=== PATIENT | female | born 1935 | race Caucasian/White ===

== ENCOUNTER 2016-11-02 18:42 | Inpatient (IN) ==
[2016-11-02] MEDS ORDERED: 0.9 % Sodium Chloride 1,000 ML IVC ONE (19:14)
--- NOTE | 2016-11-02 19:31 | Emergency Department Note ---
Disposition Clinical Impression: ARNOLD (acute kidney injury) UTI (urinary tract infection) Qualifiers: Urinary tract infection type: site unspecified Hematuria presence: without hematuria Qualified Code(s): N39.0 - Urinary tract infection, site not specified Disposition: Admitted As Inpatient Condition: Fair Time of Disposition: 21:27 Female Urogenital HPI - General Chief complaint: ED Urogenital-Female Stated complaint: unable to Urinate, Dizzy Time Seen by Provider: 11/02/16 18:50 Source: patient, family Mode of arrival: ambulatory Limitations: no limitations Nursing Notes Reviewed: Yes Vital Signs Reviewed: Yes - History of Present Illness HPI Narrative: 81-year-old female with a history of hypertension, diabetes presents for evaluation of urinary symptoms. Patient states she has had difficulty urinating that started this morning around 7:00. Patient states she has been drinking lots of water. Patient does have a history of urinary tract infection the past. Patient denies any hematuria. Just notes that she dribbles when she urinates. Patient denies any abdominal pain. No chest pain comes of breath. No nausea or vomiting. Patient denies any bowel diarrhea or constipation. Patient does state that she has been intermittent dizzy over the past year. Patient currently denies any dizziness. No focal neurologic deficits. Patient states she has a history of paresthesias in her lower extremities has been present for years. - Related Data Previous Rx's Medication Instructions Recorded Cyclobenzaprine [Flexeril] 10 mg PO TID #14 tablet 06/20/15 HYDROcodone/Acet 5/325 mg [[place] 1 tab PO Q6H #7 tab 06/20/15 5-325 mg] HYDROcodone/Acet 5/325 mg [[place] 1 tab PO Q6H #7 tab 07/23/15 5-325 mg] Ciprofloxacin HCl [Cipro] 500 mg PO BID #14 tablet 08/30/15 Allergies Allergy/AdvReac Type Severity Reaction Status Date / Time Sulfa (Sulfonamide AdvReac See Verified 06/19/15 22:24 Antibiotics) Comments All systems ED: reviewed and negative except as stated. Constitutional: Reports: as per HPI. Denies: fever Eyes: Reports: as per HPI ENT ED: Reports: as per HPI Cardiovascular: Reports: as per HPI. Denies: chest pain, palpitations Respiratory: Reports: as per HPI Gastrointestinal: Reports: as per HPI. Denies: abdominal pain, nausea, vomiting Genitourinary: Reports: as per HPI Integumentary: Reports: as per HPI Neurological: Reports: as per HPI. Denies: weakness Psychiatric: Reports: as per HPI Endocrine: Reports: as per HPI Hematological/Lymphatic: Reports: as per HPI Allergic/Immunologic: Reports: as per HPI Past Medical History - Past Medical History Medical history: Reports: diabetes, hyperlipidemia, hypertension Psychiatric history: Reports: anxiety, depression - Social History Smoking Status: Never smoker Smokeless Tobacco Status: No Alcohol use: Reports: none Drug use: Reports: none Physical Exam - General Limitations: no limitations General appearance: alert, in no apparent distress - Head Head exam: atraumatic, normal inspection - Eye Eye exam: Present: normal appearance, EOMI - ENT ENT exam: normal exam, mucous membranes moist - Neck Neck exam: Present: normal inspection - Chest Chest inspection: Present: normal inspection, symmetric chest wall rise - Respiratory Respiratory exam: Present: normal lung sounds bilaterally. Absent: respiratory distress - Cardiovascular Cardiovascular exam: Present: regular rate, normal rhythm - Abdominal Exam Abdominal exam: Present: soft, Non-Tender - Extremities Exam Extremities exam: Present: normal inspection. Absent: pedal edema - Back Exam Back exam: Present: normal inspection - Neurological Exam Neurological exam: Present: alert, oriented X3, CN II-XII intact - Expanded Neurological Exam Patient oriented to: Present: person, place, time Speech: Present: fluid speech Cranial nerves: EOM function (II, III, IV, ): Normal, facial sensation (V): Normal, facial palsy (VII): Normal, tongue deviation (XII): Normal Motor strength - LUE: 5/5 Motor strength - RUE: 5/5 Motor strength - LLE: 5/5 Motor strength - RLE: 5/5 Sensory exam upper extremity: light touch: Normal Sensory exam lower extremity: light touch: Abnormal Left, Abnormal Right Coma Scale Eye Opening: Spontaneous Coma Scale Motor Response: Obeys Commands Coma Scale Verbal Response: Oriented Coma Scale Total: 15 - Skin Skin exam: Present: warm, dry, intact, normal color Course Course Narrative: Patient seen and examined. Patient will receive a UA as well as basic laboratory work. Patient also get a screening cardiac evaluation with EKG troponin chest x-ray given her dizziness and nonspecific symptoms. Patient will also receive a CT of the pelvis. Patient will have a urinary Perez placed. Bladder ultrasound does not show a distended bladder. - Reevaluation(s) Reevaluation #1: Patient seen and examined. Patient's resting comfortably. Repeat abdominal exam is unremarkable. Patient's updated on plan of care to date. Awaiting urinalysis. Time: 20:12 Vital Signs Temperature 99.0 F 11/02/16 18:44 Pulse Rate 66 11/02/16 18:44 Respiratory Rate 18 11/02/16 18:44 Blood Pressure 144/79 11/02/16 18:44 O2 Sat by Pulse Oximetry 95 11/02/16 18:44 Temperature 99.0 F 11/02/16 18:44 Pulse Rate 55 11/02/16 21:00 Respiratory Rate 16 11/02/16 21:00 Blood Pressure 137/57 11/02/16 21:00 O2 Sat by Pulse Oximetry 95 11/02/16 18:44 Oxygen Delivery Oxygen Delivery Room Air Urogenital-Female - [facility] Narrative Medical decision making narrative: 81-year-old female persons for evaluation of urinary symptoms. Symptoms began more acutely. Patient had basic laboratory evaluation which includes acute kidney injury. Likely prerenal. Patient's been given IV fluid hydration. Patient also had a urinalysis obtained which shows signs of infection. Patient started antibiotics. Patient's CT scan pelvis shows no acute abnormalities with incidental findings. Patient's chest x-ray shows no abnormality esteban patient's EKG also was unremarkable with a negative troponin. Patient had a screening cardiac evaluation giving her nonspecific symptoms with dizziness and history of diabetes possibly being anginal equivalent. Patient and patient's family agree with plan of care. - Lab Data Lab results reviewed: Yes I reviewed the patient's lab results. Result diagrams: 11/02/16 19:30 11/02/16 19:30 Lab Results 11/02/16 11/02/16 11/02/16 Range/Units 19:30 19:30 19:30 WBC 7.1 (4.3-11.1) K/mcL RBC 3.82 (3.82-4.97) M/mcL Hgb 11.8 (11.5-15.4) g/dL Hct 36.4 (35.3-44.9) % MCV 95.3 (83.0-100.0) fL MCH 30.9 (28.0-33.3) pg MCHC 32.4 (31.6-35.5) g/dL RDW 13.1 (11.5-14.5) % Plt Count 206 (140-400) K/mcL MPV 10.7 (9.4-12.4) fL Immature Gran % 0.3 (0-4) % Seg Neutrophils % 48.4 % Lymphocytes % 39.5 % Monocytes % 10.3 % Eosinophils % 1.1 % Basophils % 0.4 % Neutrophils # 3.4 (1.6-8.9) K/mcL Lymphocytes # 2.8 (0.6-4.6) K/mcL Monocytes # 0.7 (0.0-1.3) K/mcL Eosinophils # 0.1 (0.0-0.6) K/mcL Basophils # 0.0 (0.0-0.2) K/mcL Sodium 139 (136-145) mEq/L Potassium 4.4 (3.5-4.5) mEq/L Chloride 104 (98-109) mEq/L Carbon Dioxide 24 (19-29) mEq/L BUN 13 (7-20) mg/dL Creatinine 1.85 H (0.57-1.11) mg/dL Est GFR ( Amer) 32 L (> 60) Est GFR (Non-Af Amer) 26 L (> 60) BUN/Creatinine Ratio 7 (6-26) Glucose 108 H (70-99) mg/dL Calculated Osmolality 289 (280-300) Lactic Acid 2.0 (0.5-2.2) mmol/L Calcium 9.3 (8.6-10.8) mg/dL Total Bilirubin 0.7 (0.2-1.2) mg/dL Direct Bilirubin 0.3 (0.0-0.5) mg/dL Indirect Bilirubin 0.4 (0.0-1.2) mg/dL AST 32 (5-34) Units/L ALT 24 (0-55) Units/L Alkaline Phosphatase 103 (38-126) Units/L Serum Total Protein 6.7 (6.0-8.3) g/dL Albumin 3.4 L (3.5-5.0) g/dL Globulin 3.3 (2.4-3.5) g/dL Albumin/Globulin Ratio 1.0 L (1.1-2.2) Amylase 53 (25-125) Units/L Lipase 55 (8-78) Units/L Urine Color (Yellow) Urine Clarity (Clear) Urine pH (5.0-8.0) pH Units Ur Specific [place] (1.010-1.025) Urine Protein (Neg-Trace) mg/dL Urine Glucose (UA) (Normal) mg/dL Urine Ketones (Negative) mg/dL Urine Blood (Negative) Urine Nitrite (Negative) Urine Bilirubin (Negative) Urine Urobilinogen (Normal) mg/dL Ur Leukocyte Esterase (Negative) Urine Microscopic RBC (0-3) per hpf Urine Microscopic WBC (0-3) per hpf Ur Squamous Epith Cells (None-Few) per lpf Urine Bacteria (None-Few) per hpf Hyaline Casts (None-Few) per lpf 11/02/16 Range/Units 20:25 WBC (4.3-11.1) K/mcL RBC (3.82-4.97) M/mcL Hgb (11.5-15.4) g/dL Hct (35.3-44.9) % MCV (83.0-100.0) fL MCH (28.0-33.3) pg MCHC (31.6-35.5) g/dL RDW (11.5-14.5) % Plt Count (140-400) K/mcL MPV (9.4-12.4) fL Immature Gran % (0-4) % Seg Neutrophils % % Lymphocytes % % Monocytes % % Eosinophils % % Basophils % % Neutrophils # (1.6-8.9) K/mcL Lymphocytes # (0.6-4.6) K/mcL Monocytes # (0.0-1.3) K/mcL Eosinophils # (0.0-0.6) K/mcL Basophils # (0.0-0.2) K/mcL Sodium (136-145) mEq/L Potassium (3.5-4.5) mEq/L Chloride (98-109) mEq/L Carbon Dioxide (19-29) mEq/L BUN (7-20) mg/dL Creatinine (0.57-1.11) mg/dL Est GFR ( Amer) (> 60) Est GFR (Non-Af Amer) (> 60) BUN/Creatinine Ratio (6-26) Glucose (70-99) mg/dL Calculated Osmolality (280-300) Lactic Acid (0.5-2.2) mmol/L Calcium (8.6-10.8) mg/dL Total Bilirubin (0.2-1.2) mg/dL Direct Bilirubin (0.0-0.5) mg/dL Indirect Bilirubin (0.0-1.2) mg/dL AST (5-34) Units/L ALT (0-55) Units/L Alkaline Phosphatase (38-126) Units/L Serum Total Protein (6.0-8.3) g/dL Albumin (3.5-5.0) g/dL Globulin (2.4-3.5) g/dL Albumin/Globulin Ratio (1.1-2.2) Amylase (25-125) Units/L Lipase (8-78) Units/L Urine Color Yellow (Yellow) Urine Clarity Hazy A (Clear) Urine pH 5.0 (5.0-8.0) pH Units Ur Specific [place] 1.018 (1.010-1.025) Urine Protein Negative (Neg-Trace) mg/dL Urine Glucose (UA) Normal (Normal) mg/dL Urine Ketones Negative (Negative) mg/dL Urine Blood Negative (Negative) Urine Nitrite Negative (Negative) Urine Bilirubin Negative (Negative) Urine Urobilinogen Normal (Normal) mg/dL Ur Leukocyte Esterase Moderate H (Negative) Urine Microscopic RBC 3-5 H (0-3) per hpf Urine Microscopic WBC 50-100 H (0-3) per hpf Ur Squamous Epith Cells Many H (None-Few) per lpf Urine Bacteria Few (None-Few) per hpf Hyaline Casts Many H (None-Few) per lpf - Radiology Data Radiology results reviewed: Yes I reviewed the patient's radiology results. Abdomen/Pelvis CT 11/02/16 19:14 IMPRESSION: 1. No acute abnormality within the abdomen and pelvis. 2. Colonic diverticulosis without evidence of acute diverticulitis. 3. Large amount of retained ingested material within the stomach. 4. Status post cholecystectomy and hysterectomy. D/ / 11/02/2016 19:54:00 Jeremias Batres MD / primo Interpreting Provider: Jeremias Batres MD Chest X-Ray 11/02/16 19:15 IMPRESSION: No acute cardiopulmonary disease. D/ / Garfield Mrashall MD / Garfield Marshall MD Interpreting Provider: Garfield Marshall MD - EKG Data EKG attestation: Yes I reviewed and interpreted this EKG. EKG shows normal: sinus rhythm Rate: normal Rhythm: NSR [place]/QRS: normal Heart block present: 1st Degree T wave inversions noted in: aVR Interpretation: no acute changes SIta - Oksana Situation: Demographics Background: Presenting Complaint Assessment: Vital Signs Recommendation: Barrier(s) to disposition, Recommendation based on pending studies, treatments, or consults SIta Report Given to: Dr. Yonis Gandhi Repor Time: 21:23 Attestation Statement - Attestation Attestation: I, Milton Gardner DO, examined this patient [id number] and my medical decision-making was reviewed with Dr. Lee PGY - 3, Resident Physician. I agree with the documented findings, disposition and treatment plan as described except to the extent set forth below. Please see my progress notes for details. 9-year-old female complained of urinary symptoms with decreased urinary output over the last 24 hours. Patient has no other significant medical history. She has had some lower abdominal pressure discomfort. Detailed review and evaluation completed with CT imaging chest x-ray urinalysis as well as bedside ultrasonography. Bladder was unable to be visualized secondary to decompressed presentation. Full aggressive was placed 50 mL of urine came out. Urinalysis did look concerning for infection. Patient also had acute kidney insufficiency of unknown etiology. Her creatinine is doubled over the last year. Patient otherwise has no other acute findings and laboratory workup. Recommended admission for evaluation of acute kidney insufficiency, fluid hydration, treatment of possible urinary tract infection. Patient is okay with the being evaluated for admission here now. Disposition pending completion of treatment course. See detailed documentation of present physicians note for completion of the course of care as well as medical intervention. Physical exam is otherwise benign on my evaluation with benign-appearing abdomen lungs are clear heart is regular. Patient is otherwise stable. Patient found to have grossly infected urinary tract at this time. Patient also had a significant acute kidney insufficiency. Admitted to the hospitals for definitive evaluation management. Other concern is she is not at this time
[2016-11-02 19:37] LABS: Basophils % 0.4 %; Eosinophils # 0.1 K/mcL (0.0-0.6); Eosinophils % 1.1 %; Hematocrit 36.4 % (35.3-44.9); Hemoglobin 11.8 g/dL (11.5-15.4); Immature Granulocytes % 0.3 % (0-4); Lymphocytes # 2.8 K/mcL (0.6-4.6); Lymphocytes % 39.5 %; Mean Corpuscular HGB Conc 32.4 g/dL (31.6-35.5); Mean Corpuscular Hemoglobin 30.9 pg (28.0-33.3); Mean Corpuscular Volume 95.3 fL (83.0-100.0); Mean Platelet Volume 10.7 fL (9.4-12.4); Monocytes # 0.7 K/mcL (0.0-1.3); Monocytes % 10.3 %; Neutrophils # 3.4 K/mcL (1.6-8.9); Platelet Count 206 K/mcL (140-400); Red Blood Count 3.82 M/mcL (3.82-4.97); Red Cell Distribution Width 13.1 % (11.5-14.5); Segmented Neutrophils % 48.4 %
[2016-11-02 19:54] LABS: Albumin 3.4 g/dL (3.5-5.0); Bilirubin,Direct 0.3 mg/dL (0.0-0.5); Bilirubin,Indirect 0.4 mg/dL (0.0-1.2); Bilirubin,Total 0.7 mg/dL (0.2-1.2); Calcium 9.3 mg/dL (8.6-10.8); Globulin 3.3 g/dL (2.4-3.5); Potassium 4.4 mEq/L (3.5-4.5); Total Protein 6.7 g/dL (6.0-8.3)
[2016-11-02 20:33] LABS: Bilirubin,Urine Negative (Negative); Blood,Urine Negative (Negative); Color,Urine Yellow (Yellow); Glucose,Urine (UA) Normal (Normal); Ketones,Urine Negative (Negative); Leukocyte Esterase,Urine Moderate (Negative); Nitrite,Urine Negative (Negative); Protein,Urine Negative (Neg-Trace); Specific Gravity,Urine 1.018 (1.010-1.025); Urobilinogen,Urine Normal (Normal)
[2016-11-02 20:35] LABS: Squamous Epithelial Cell,Urine Many per lpf (None-Few); WBC,Urine 50-100 per hpf (0-3)
[2016-11-02 20:39] LABS: Clarity,Urine Hazy (Clear)
[2016-11-02 21:17] LABS: Hyaline Casts,Urine Many per lpf (None-Few)
[2016-11-02 21:18] LABS: Bacteria,Urine Few per hpf (None-Few)
--- NOTE | 2016-11-02 23:22 | Internal Med History&Physical ---
Date of Encounter: 11/02/16 Time of Encounter: 23:21 Assessment and Plan (1) ARNOLD (acute kidney injury) Current visit: Yes Status: Acute unclear etiology, BUN/Cr ratio doesn't suggest dehydration. No NSAID or other nephrotoxin use. - Hold home meloxicam, HCTZ/ammiloride - IVF - Cont Perez - Check CK in AM - US renal in AM - Renal adjustment of medication doses (2) UTI (urinary tract infection) Current visit: Yes Status: Acute dizziness is a symptoms consistent with prior UTI. - Empiric ceftriaxone (11/02- ) - Urine culture to decide if further course is warranted Qualifiers: Urinary tract infection type: site unspecified Hematuria presence: without hematuria Qualified Code(s): N39.0 - Urinary tract infection, site not specified (3) HTN (hypertension) Current visit: Yes Status: Acute Hold amiloride/HCTZ due to ARNOLD for now Qualifiers: Hypertension type: essential hypertension Qualified Code(s): I10 - Essential (primary) hypertension (4) Hereditary peripheral neuropathy Current visit: Yes Status: Acute Frequent falls - Decrease gabapentin dose due to ARNOLD - PT and OT consult (5) Diabetes mellitus Current visit: Yes Status: Acute - hold pioglitazone and metformin while she has ARNOLD Qualifiers: Diabetes mellitus type: type 2 Diabetes mellitus complication status: without complication Diabetes mellitus predatory animal exterminator insulin use: without predatory animal exterminator use Qualified Code(s): E11.9 - Type 2 diabetes mellitus without complications Internal Medicine - H&P: HPI Chief complaint: decreased urine output Admitted From: Emergency Dept Plans for Post Hospital Care: Home History of present illness: 81W generally wakes up at night to urinate 3-4 times and has frequent urination at baseline. She noted that starting 7 am n 11/02, she had no urine output, thus presented to the ED and was found to have ARNOLD (Cr 0.83 --> 1.85) thus admitted. No urine was noted with initially Perez placement until IVF were not administered. She is on meloxicam at baseline, no excessive use. No OTC NSAID use. No diarrhea or poor oral intake suggesting dehydration. She has history of frequent UTIs, but generally gets increase in frequent urination and chills when she has a UTI, she did not have those symptoms this time. She did have 5 dizzy spells today,w hich she gets when she has a UTI. She has been falling frequently due to hereditary LE neuropathy, and fell twice recently with back pain and left knee pain. She received 2 epidural injections last month for acute back pain. A 10-point ROS is otherwise negative. PMH: - HTN - HL - DM2 - Diverticulosis - Anxiety - Hereditary LE neuropathy - CBP - Left wrist fracture 2 months ago SH: Quit tobacco use 50 years ago. Past Med Surg Social Fam HX - Past Medical History Medical history: diabetes, hyperlipidemia, hypertension Psychiatric history: anxiety, depression - Past Surgical History Surgical History: cholecystectomy, hysterectomy - Social History Smoking Status: Never smoker Smokeless Tobacco Status: No Alcohol use: none Drug use: none - Family History Mother Hx Family Cardiac Disorders: Yes Internal Medicine - H&P: Meds ALPRAZolam [Xanax 0.5 MG Tablet] 0.5 mg PO BID 11/02/16 [History] Amiloride/Hydrochlorothiazide [Amiloride HCl-Hctz 5-50 mg Tab] 1 tab PO DAILY [History] Citalopram Hydrobromide [Celexa] 40 mg PO DAILY 11/02/16 [History] Gabapentin [Neurontin] 600 mg PO BID 11/02/16 [History] Meloxicam [Mobic] 7.5 mg PO DAILY 11/02/16 [History] Metformin HCl [Glucophage] 1,000 mg PO BID 11/02/16 [History] Multivitamin [Multi-Day Vitamins] 1 tab PO DAILY 11/02/16 [History] Pioglitazone HCl [Actos] 30 mg PO DAILY 11/02/16 [History] Rosuvastatin Calcium [Crestor] 10 mg PO DAILY 11/02/16 [History] 3 Allergy/AdvReac Type Severity Reaction Status Date / Time Sulfa (Sulfonamide AdvReac See Verified 06/19/15 22:24 Antibiotics) Comments All Systems PM: A 10-system review of systems was performed and is negative for pertinent findings except as documented above in the HPI. - Constitutional Vitals: Temp Pulse Resp BP Pulse Ox 97.6 F 55 12 140/59 97 11/02/16 22:25 11/02/16 22:25 11/02/16 22:25 11/02/16 22:25 11/02/16 23:03 General appearance: Present: A&O X 3, pleasant, no acute distress - Head Head exam: Present: atraumatic, normocephalic - Eye Eye exam: Present: PERRL, conjuntiva pink, sclera anicteric Pupils: Present: PERRL - Neck Neck exam general surgery: Present: supple, trachea midline. Absent: nuchal rigidity - Respiratory Respiratory exam: Present: CTAB. Absent: accessory muscle use, rales, rhonchi, wheezes - Cardiovascular Cardiovascular exam: Present: RRR, +S1, +S2. Absent: diastolic murmur, gallop, rubs, systolic murmur - GI/Abdominal GI/Abdominal exam: Present: normal bowel sounds, soft, no peritoneal signs. Absent: distended, guarding, rebound, rigid, tenderness - Extremities Exam Extremities exam: Present: warm, radial pulses palpable and symmetrical. Absent : calf tenderness, cyanotic, pedal edema - Neurological Exam Neurological exam: Present: abnormal gait (snesory neuropathy LE bilateral), CN II-XII intact, oriented X3. Absent: facial droop, speech deficit - Psychiatric Psychiatric exam: Present: normal affect, normal mood - Skin Skin exam: Present: dry, intact Internal Med - H&P Results - Labs CBC & Chem 7: 11/02/16 19:30 11/02/16 19:30
[2016-11-03] MEDS ORDERED: Naloxone 0.4 MG/ML INJ IVP PRN (01:15)
[2016-11-03] MEDS ORDERED: Acetaminophen 325 MG TABLET PO PRN (01:15)
[2016-11-03] MEDS: Gabapentin 300 MG CAPSULE PO SCH ×3 (01:31→21:03)
[2016-11-03] MEDS: 0.9 % Sodium Chloride 1,000 ML IVC SCH ×2 (01:31→21:59)
[2016-11-03] MEDS: ALPRAZolam 0.5 MG TABLET PO SCH ×3 (01:31→21:03)
[2016-11-03 04:43] LABS: Basophils % 0.6 %; Eosinophils # 0.1 K/mcL (0.0-0.6); Eosinophils % 1.4 %; Hematocrit 33.2 % (35.3-44.9); Hemoglobin 10.6 g/dL (11.5-15.4); Immature Granulocytes % 0.3 % (0-4); Immature Platelets 7.7 % (1.1-6.1); Lymphocytes # 2.9 K/mcL (0.6-4.6); Mean Corpuscular HGB Conc 31.9 g/dL (31.6-35.5); Mean Corpuscular Hemoglobin 30.5 pg (28.0-33.3); Mean Corpuscular Volume 95.4 fL (83.0-100.0); Mean Platelet Volume 11.5 fL (9.4-12.4); Monocytes # 0.6 K/mcL (0.0-1.3); Monocytes % 8.5 %; Neutrophils # 3.4 K/mcL (1.6-8.9); Platelet Count 189 K/mcL (140-400); Red Blood Count 3.48 M/mcL (3.82-4.97); Red Cell Distribution Width 13.2 % (11.5-14.5); Segmented Neutrophils % 48.2 %
[2016-11-03 05:03] LABS: Calcium 8.9 mg/dL (8.6-10.8); Magnesium 1.5 mg/dL (1.6-2.6); Potassium 3.6 mEq/L (3.5-4.5)
[2016-11-03] MEDS ORDERED: *HR* Enoxaparin 30 MG/0.3 ML SYRINGE SQ SCH (06:00)
--- NOTE | 2016-11-03 15:05 | Internal Med Progress Note ---
Date of Encounter: 11/03/16 Time of Encounter: 15:05 - Assessment and plan (1) ARNOLD (acute kidney injury) Current Visit: Yes Status: Acute Assessment and plan: Cr 1.8 on arrival. Possibly secondary to UTI. BUN/Cr ratio doesn't suggest dehydration. No NSAID or other nephrotoxin use. Renal ultrasound unremarkable. Renal function significantly improved with IV fluids. Holding home meloxicam , HCTZ/ammiloride. Repeat Cr 1.2. Cont IV fluids. (2) UTI (urinary tract infection) Current Visit: Yes Status: Acute Assessment and plan: suspected. UA with leuk esterase and pyuria. Complains of dizziness which is a symptom consistent with prior UTI. Cont empiric ceftriaxone. Follow urine culture and narrow accordingly Qualifiers: Urinary tract infection type: site unspecified Hematuria presence: without hematuria Qualified Code(s): N39.0 - Urinary tract infection, site not specified (3) DVT prophylaxis Current Visit: Yes Status: Acute Assessment and plan: heparin - Time Spent With Patient 25 - 35 minutes - Subjective Interval history: Seen and examined at bedside. Patient is new to me information obtained from chart review and patient report. Patient says she feels much better today. No previous history of CTD. Says she has been eating and drinking as normal. She thinks she has had a UTI for a while. No chest pain, no SOB, no abdominal pain , no nausea vomiting or diarrhea. A 10 point review of system was obtained and negative unless otherwise noted above - Constitutional Vitals: Temp Pulse Resp BP Pulse Ox 98.0 F 51 16 176/66 95 11/03/16 11:53 11/03/16 11:53 11/03/16 11:53 11/03/16 11:53 11/03/16 11:53 General appearance: Present: A&O X 3, pleasant, no acute distress Internal Medicine: Result - Labs CBC & Chem 7: 11/03/16 03:23 11/03/16 03:23 Labs: Short CBC 11/03/16 Range/Units 03:23 WBC 7.0 (4.3-11.1) K/mcL Hgb 10.6 L (11.5-15.4) g/dL Hct 33.2 L (35.3-44.9) % Plt Count 189 (140-400) K/mcL Neutrophils # 3.4 (1.6-8.9) K/mcL BMP 11/03/16 03:23 Sodium 139 Potassium 3.6 Chloride 105 Carbon Dioxide 26 BUN 11 Creatinine 1.26 H Glucose 109 H Calcium 8.9 - Impressions Impressions Retroperitoneum Ultrasound 11/03/16 11:00 IMPRESSION: No acute abnormality of the kidneys. No hydronephrosis. D/ / Jose Black MD / Jose Black MD Interpreting Provider: Jose Black MD Consult Discharge Plan - Plan Referrals: iLbrado Long Jr, MD [Primary Care Provider] -
[2016-11-03] MEDS: *HR* Heparin 5,000 UNIT/ML VIAL SQ SCH ×2 (16:14→21:03)
[2016-11-03] MEDS ORDERED: CefTRIAXone 1,000 MG VIAL ONE (20:06)
[2016-11-03] MEDS ORDERED: D5% in Water (Mini-Bag+) 100 ML IVPB ONE (20:35)
[2016-11-04 01:49] LABS: Hematocrit 33.2 % (35.3-44.9); Hemoglobin 10.7 g/dL (11.5-15.4); Mean Corpuscular HGB Conc 32.2 g/dL (31.6-35.5); Mean Corpuscular Hemoglobin 30.2 pg (28.0-33.3); Mean Corpuscular Volume 93.8 fL (83.0-100.0); Mean Platelet Volume 10.7 fL (9.4-12.4); Platelet Count 166 K/mcL (140-400); Red Blood Count 3.54 M/mcL (3.82-4.97)
[2016-11-04 02:05] LABS: Alanine Aminotransferase 16 Units/L (0-55); Albumin 3.1 g/dL (3.5-5.0); Alkaline Phosphatase 85 Units/L (38-126); Aspartate Amino Transferase 22 Units/L (5-34); BUN/Creatinine Ratio 10 (6-26); Bilirubin,Total 0.7 mg/dL (0.2-1.2); Blood Urea Nitrogen 9 mg/dL (7-20); Calcium 8.9 mg/dL (8.6-10.8); Carbon Dioxide 27 mEq/L (19-29); Chloride 106 mEq/L (98-109); Glucose 100 mg/dL (70-99); Osmolality,Calculated 289 (280-300); Potassium 3.5 mEq/L (3.5-4.5); Sodium 140 mEq/L (136-145); Total Protein 6.1 g/dL (6.0-8.3); eGFR For African Americans > 60 (> 60); eGFR For Non-African Americans > 60 (> 60)
[2016-11-04] MEDS: *HR* Heparin 5,000 UNIT/ML VIAL SQ SCH ×3 (06:15→22:06)
[2016-11-04] MEDS: ALPRAZolam 0.5 MG TABLET PO SCH ×2 (08:13→22:06)
[2016-11-04] MEDS: Gabapentin 300 MG CAPSULE PO SCH ×3 (08:13→22:06)
[2016-11-04] MEDS ORDERED: amLODIPine 5 MG TABLET PO SCH (09:00)
--- NOTE | 2016-11-04 09:03 | Internal Med Progress Note ---
Date of Encounter: 11/04/16 Time of Encounter: 09:01 - Assessment and plan (1) ARNOLD (acute kidney injury) Current Visit: Yes Status: Acute Assessment and plan: Cr 1.8 on arrival. Possibly secondary to urinary retention Renal ultrasound unremarkable. Renal function significantly improved with IV fluids. Holding home meloxicam, Resume HCTZ/ammiloride. Discontinue IV fluids. (2) Urinary retention Current Visit: Yes Status: Acute (3) Bradycardia Current Visit: Yes Status: Acute Assessment and plan: Asymptomatic bradycardia (4) UTI (urinary tract infection) Current Visit: Yes Status: Acute Assessment and plan: suspected. UA with leuk esterase and pyuria. Will receive third dose of ceftriaxone tonight and stop. Culture did not grow any bacteria Qualifiers: Urinary tract infection type: site unspecified Hematuria presence: without hematuria Qualified Code(s): N39.0 - Urinary tract infection, site not specified (5) HTN (hypertension) Current Visit: Yes Status: Acute Assessment and plan: Accelerated hypertension Resume for side, start hydralazine scheduled dose and use hydralazine IV as needed Qualifiers: Hypertension type: essential hypertension Qualified Code(s): I10 - Essential (primary) hypertension (6) Hereditary peripheral neuropathy Current Visit: Yes Status: Acute Assessment and plan: Resume home dose of gabapentin (7) Diabetes mellitus Current Visit: Yes Status: Acute Assessment and plan: Controlled Qualifiers: Diabetes mellitus type: type 2 Diabetes mellitus complication status: without complication Diabetes mellitus terminal make up operator insulin use: without terminal make up operator use Qualified Code(s): E11.9 - Type 2 diabetes mellitus without complications - Subjective Interval history: Patient feels better, denies any chest pain, shortness of breath, no abdominal pain, no fevers or chills, diarrhea or dysuria, her urinary retention has improved after removing the Perez catheter. Her blood pressures still very high - Constitutional Vitals: Temp Pulse Resp BP Pulse Ox 98.3 F 49 15 176/72 95 11/04/16 07:23 11/04/16 07:23 11/04/16 07:23 11/04/16 07:23 11/04/16 03:01 General appearance: Present: A&O X 3, pleasant, no acute distress - Head Head exam: Present: atraumatic, normocephalic - Eye Eye exam: Present: PERRL, conjuntiva pink, sclera anicteric Pupils: Present: PERRL - Neck Neck exam general surgery: Present: supple, trachea midline. Absent: lymphadenopathy - Respiratory Respiratory exam: Present: CTAB. Absent: accessory muscle use, rales, rhonchi, wheezes - Cardiovascular Cardiovascular exam: Present: RRR, +S1, +S2. Absent: diastolic murmur, gallop, rubs, systolic murmur - GI/Abdominal GI/Abdominal exam: Present: normal bowel sounds, soft, no peritoneal signs. Absent: distended, tenderness - Extremities Exam Extremities exam: Present: warm, radial pulses palpable and symmetrical. Absent : calf tenderness, cyanotic, pedal edema - Neurological Exam Neurological exam: Present: CN II-XII intact, oriented X3, no focal deficits. Absent: pronater drift, facial droop, speech deficit - Skin Skin exam: Present: dry, intact Internal Medicine: Result - Labs CBC & Chem 7: 11/04/16 01:38 11/04/16 01:38 Labs: Short CBC 11/04/16 Range/Units 01:38 WBC 5.9 (4.3-11.1) K/mcL Hgb 10.7 L (11.5-15.4) g/dL Hct 33.2 L (35.3-44.9) % Plt Count 166 (140-400) K/mcL BMP 11/04/16 01:38 Sodium 140 Potassium 3.5 Chloride 106 Carbon Dioxide 27 BUN 9 Creatinine 0.86 Glucose 100 H Calcium 8.9 Liver Function 11/04/16 Range/Units 01:38 Total Bilirubin 0.7 (0.2-1.2) mg/dL AST 22 (5-34) Units/L ALT 16 (0-55) Units/L Alkaline Phosphatase 85 (38-126) Units/L Albumin 3.1 L (3.5-5.0) g/dL - Impressions Impressions Retroperitoneum Ultrasound 11/03/16 11:00 IMPRESSION: No acute abnormality of the kidneys. No hydronephrosis. D/ / Jose Black MD / Jose Black MD Interpreting Provider: Jose Black MD Consult Discharge Plan - Plan Referrals: Librado Long Jr, MD [Primary Care Provider] -
[2016-11-04] MEDS: hydrALAZINE 25 MG TABLET PO SCH ×4 (10:39→23:46)
[2016-11-04] MEDS: 0.9 % Sodium Chloride 1,000 ML IVC SCH (19:37)
[2016-11-05] MEDS: *HR* Heparin 5,000 UNIT/ML VIAL SQ SCH (06:13)
[2016-11-05] MEDS: hydrALAZINE 25 MG TABLET PO SCH (06:13)
[2016-11-05 06:28] LABS: Hematocrit 36.3 % (35.3-44.9); Hemoglobin 11.6 g/dL (11.5-15.4); Mean Corpuscular Hemoglobin 30.1 pg (28.0-33.3); Mean Corpuscular Volume 94.3 fL (83.0-100.0); Mean Platelet Volume 11.3 fL (9.4-12.4); Platelet Count 178 K/mcL (140-400); Red Blood Count 3.85 M/mcL (3.82-4.97); Red Cell Distribution Width 13.2 % (11.5-14.5)
[2016-11-05 06:31] LABS: Alanine Aminotransferase 18 Units/L (0-55); Albumin 3.1 g/dL (3.5-5.0); Alkaline Phosphatase 93 Units/L (38-126); Aspartate Amino Transferase 22 Units/L (5-34); BUN/Creatinine Ratio 9 (6-26); Bilirubin,Total 0.6 mg/dL (0.2-1.2); Blood Urea Nitrogen 7 mg/dL (7-20); Calcium 9.8 mg/dL (8.6-10.8); Carbon Dioxide 26 mEq/L (19-29); Chloride 107 mEq/L (98-109); Globulin 3.2 g/dL (2.4-3.5); Glucose 119 mg/dL (70-99); Osmolality,Calculated 289 (280-300); Potassium 3.6 mEq/L (3.5-4.5); Sodium 140 mEq/L (136-145); Total Protein 6.3 g/dL (6.0-8.3); eGFR For African Americans > 60 (> 60); eGFR For Non-African Americans > 60 (> 60)
[2016-11-05 06:57] VITALS: BP 155/74
[2016-11-05] MEDS: Gabapentin 300 MG CAPSULE PO SCH (07:22)
[2016-11-05] MEDS: ALPRAZolam 0.5 MG TABLET PO SCH (07:23)
--- NOTE | 2016-11-05 08:11 | Discharge Summary ---
Date of Encounter: 11/05/16 Time of Encounter: 08:07 - Discharge Diagnosis (1) ARNOLD (acute kidney injury) Priority: Primary Status: Acute Comments: Possibly secondary to urinary retention (2) Urinary retention Priority: Secondary Status: Acute (3) Bradycardia Priority: Secondary Status: Acute (4) UTI (urinary tract infection) Priority: Secondary Status: Acute Qualifiers: Urinary tract infection type: site unspecified Hematuria presence: without hematuria Qualified Code(s): N39.0 - Urinary tract infection, site not specified (5) HTN (hypertension) Priority: Secondary Status: Acute Qualifiers: Hypertension type: essential hypertension Qualified Code(s): I10 - Essential (primary) hypertension (6) Hereditary peripheral neuropathy Priority: Secondary Status: Acute (7) Diabetes mellitus Priority: Secondary Status: Acute Qualifiers: Diabetes mellitus type: type 2 Diabetes mellitus complication status: without complication Diabetes mellitus assisted insulin use: without termite treater use Qualified Code(s): E11.9 - Type 2 diabetes mellitus without complications - Discharge Medications Prescriptions: hydrALAZINE [HydrALAZINE] 25 mg PO Q6HR #120 tab Lisinopril [Zestril] 10 mg PO DAILY #30 tab Home Medications: ALPRAZolam [Xanax 0.5 MG Tablet] 0.5 mg PO BID 11/02/16 [History] Amiloride/Hydrochlorothiazide [Amiloride HCl-Hctz 5-50 mg Tab] 1 tab PO DAILY [History] Citalopram Hydrobromide [Celexa] 40 mg PO DAILY 11/02/16 [History] Gabapentin [Neurontin] 600 mg PO BID 11/02/16 [History] Metformin HCl [Glucophage] 1,000 mg PO BID 11/02/16 [History] Multivitamin [Multi-Day Vitamins] 1 tab PO DAILY 11/02/16 [History] Pioglitazone HCl [Actos] 30 mg PO DAILY 11/02/16 [History] Rosuvastatin Calcium [Crestor] 10 mg PO DAILY 11/02/16 [History] Lisinopril [Zestril] 10 mg PO DAILY #30 tab 11/05/16 [Rx] hydrALAZINE [HydrALAZINE] 25 mg PO Q6HR #120 tab 11/05/16 [Rx] Allergies/Adverse Reactions: 3 Allergy/AdvReac Type Severity Reaction Status Date / Time Sulfa (Sulfonamide AdvReac See Verified 06/19/15 22:24 Antibiotics) Comments Procedures/tests Complete & Pending: Procedures Performed prior 72 hours Category Date Time Status US retroperitoneal limited [US] Routine Exams 11/03/16 11:00 Completed Date of admission: 11/03/16 01:15 Primary care physician: Librado Long Jr, MD Consults: 11/03/16 01:19 Consult to Occupational Therapy [CONS] Routine Comment: Evaluate, develop and implement POC Reason for Consult: frequent fall, neuropathy Consult to Physical Therapy [CONS] Routine Comment: Evaluate, develop and implement POC Reason for Consult: frequent fall, neuropathy - Patient Status Disposition: Home, Self-Care Condition: Good Overall status at discharge: patient is progressing back to baseline - Discharge Instructions Follow Up With: Librado Long Jr, MD [Primary Care Provider] - Additional Instructions: Follow-up with the primary care physician within the next 7 days. Follow up with urology within the next 2 weeks. Minimize the use of meloxicam. Continue hydralazine and lisinopril for blood pressure control. - Diet and Activity Activity: increase activity as tolerated Diet: diabetic diet Hospital course: Ms. Barclay is a 81 year old female with a past medical history of diabetes type 2 not insulin-dependent, hypertension, hyperlipidemia, diverticulosis, anxiety, neuropathy. She has been falling frequently due to hereditary LE neuropathy, and fell twice recently with back pain and left knee pain. She received 2 epidural injections last month for acute back pain. She noted that starting 7 am n 11/02, she had no urine output, thus presented to the ED and was found to have ARNOLD (Cr 0.83 --> 1.85) thus admitted. No urine was noted with initially Perez placement until IVF were not administered. She was on meloxicam at baseline, no excessive use. No OTC NSAID use. No diarrhea or poor oral intake suggesting dehydration. Perez catheter was placed, her creatitine improved and it was removed. She has history of frequent UTIs, but generally gets increase in frequent urination and chills when she has a UTI, she did not have those symptoms this time. She did have 5 dizzy spells today,w hich she gets when she has a UTI. The patient was started on Rocephin and received 4 doses to using her hospitalization, the culture did not grow any bacteria. The patient's blood pressure was extremely elevated in the high 190s, was started on hydralazine which controlled her blood pressure partially, lisinopril was added. Patient's creatinine is back to baseline at 0.79 and is stable to be discharged. - Time Spent with Patient Total time spent providing and/or coordinating discharge services: Greater than 30 minutes (40 min) - Constitutional Vitals: Temp Pulse Resp BP Pulse Ox 98.7 F 50 13 155/74 94 11/05/16 06:56 11/05/16 06:56 11/05/16 06:56 11/05/16 06:56 11/05/16 06:56 General appearance: Present: A&O X 3, pleasant, no acute distress - Head Head exam: Present: atraumatic, normocephalic - Eye Eye exam: Present: PERRL, conjuntiva pink, sclera anicteric Pupils: Present: PERRL - Neck Neck exam general surgery: Present: supple, trachea midline. Absent: lymphadenopathy - Respiratory Respiratory exam: Present: CTAB. Absent: accessory muscle use, rales, rhonchi, wheezes - Cardiovascular Cardiovascular exam: Present: RRR, +S1, +S2. Absent: diastolic murmur, gallop, rubs, systolic murmur - GI/Abdominal GI/Abdominal exam: Present: normal bowel sounds, soft, no peritoneal signs. Absent: distended, tenderness - Extremities Exam Extremities exam: Present: warm, radial pulses palpable and symmetrical. Absent : calf tenderness, cyanotic, pedal edema - Neurological Exam Neurological exam: Present: CN II-XII intact, oriented X3, no focal deficits. Absent: pronater drift, facial droop, speech deficit - Skin Skin exam: Present: dry, intact
--- NOTE | 2016-11-05 09:31 | Physician Discharge Referral ---
Home Health/Hosp Referral Info Transfer to: Home Health Provider in Charge Post Discharge: PCP - Diagnosis (1) ARNOLD (acute kidney injury) Status: Acute (2) Urinary retention Status: Acute (3) Bradycardia Status: Acute (4) UTI (urinary tract infection) Status: Acute (5) HTN (hypertension) Status: Acute (6) Hereditary peripheral neuropathy Status: Acute (7) Diabetes mellitus Status: Acute - Respiratory Orders Smoking Cessation: Smoking cessation has been advised. For more information, call the [facility] Tobacco Quit Line at 8-842-MESQ-NOW. - Diet/Nutrition Diet/Nutrition Orders: No Added Salt (JM) - Services Needed Following services are medically necessary services: Home Health Aide, Physical Therapy Home Care Orders: Follow-up with the primary care physician within the next 7 days. Follow up with urology within the next 2 weeks. Minimize the use of meloxicam. Continue hydralazine and lisinopril for blood pressure control. - Transfer Medications Prescriptions: hydrALAZINE [HydrALAZINE] 25 mg PO Q6HR #120 tab Lisinopril [Zestril] 10 mg PO DAILY #30 tab Home Medications: ALPRAZolam [Xanax 0.5 MG Tablet] 0.5 mg PO BID 11/02/16 [History] Amiloride/Hydrochlorothiazide [Amiloride HCl-Hctz 5-50 mg Tab] 1 tab PO DAILY [History] Citalopram Hydrobromide [Celexa] 40 mg PO DAILY 11/02/16 [History] Gabapentin [Neurontin] 600 mg PO BID 11/02/16 [History] Metformin HCl [Glucophage] 1,000 mg PO BID 11/02/16 [History] Multivitamin [Multi-Day Vitamins] 1 tab PO DAILY 11/02/16 [History] Pioglitazone HCl [Actos] 30 mg PO DAILY 11/02/16 [History] Rosuvastatin Calcium [Crestor] 10 mg PO DAILY 11/02/16 [History] Lisinopril [Zestril] 10 mg PO DAILY #30 tab 11/05/16 [Rx] hydrALAZINE [HydrALAZINE] 25 mg PO Q6HR #120 tab 11/05/16 [Rx] Allergies/Adverse Reactions: 3 Allergy/AdvReac Type Severity Reaction Status Date / Time Sulfa (Sulfonamide AdvReac See Verified 04/16/16 22:24 Antibiotics) Comments Certification: Further, I certify that my clinical findings support that this patient is homebound (i.e. absences from home require considerable and taxing effort and are for medical reasons or congregation services or infrequently or short duration when for other reasons) because: Homebound Reason: Patient requires assistance of a person or device to safely leave home Attestation: My signature below is to certify that this patient is under my care and that I, or nurse practitioner, or a physician's assistant sales center manager working with me, has a face-to -face encounter with this patient.
--- NOTE | 2016-11-07 07:55 | Electrocardiograph Report ---
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
== END 2016-11-05 12:26 | disposition home or self-care (01) | DRG 690 ==
LOC: 3BNU 18:42 → EMEROO 18:42 → 3BNU 22:19
PROVIDERS: ADMIT Internal Medicine; ATTEND Registered Nurse

== ENCOUNTER 2016-11-14 13:51 | Observation (INO) ==
--- NOTE | 2016-11-14 14:13 | Emergency Department Note ---
Disposition Clinical Impression: Right leg pain, Inability to ambulate due to right hip Disposition: Admitted As Inpatient Time of Disposition: 21:29 General Adult HPI - General Chief complaint: ED Weakness Stated complaint: fall Time Seen by Provider: 11/14/16 13:55 Source: EMS Mode of arrival: wheelchair Limitations: no limitations Nursing Notes Reviewed: Yes Vital Signs Reviewed: Yes - History of Present Illness HPI Narrative: Mrs. Barclay, an 81yo female, presents from home via EMS for evaluation of right leg pain and increasing incontinence of bowel and bladder. Patient fell 3x today, attributed to her right leg pain. No prodromal symptoms. She is currently unable to walk because of this pain. Previously, she was able to ambulate assistance of walker and/or cane. Patient is currently being followed by Dr. Mohamud who she last saw Sun. He has been providing spinal epidural injections for LE pain. Last injection was 4 weeks ago. Patient notes right leg pain in her anterior thigh onset Sunday and persistent. She has had several months of bladder and bowel incontinence, worse since Sunday. Additionally, she notes groin pain. PMH: HTN, HLD, DM, Peripheral neuropathy ROS: Positive: Right leg pain, worsening incontinence of bowel and bladder, recurrent falls Negative: Fever, chills, nausea, vomiting, abdominal pain, head traumas, headache, confusion, changes in vision, dizziness or lightheadedness, unusual numbness or tingling Pain Scale: 8 - Related Data Home Medications Medication Instructions Recorded Confirmed ALPRAZolam [Xanax 0.5 MG Tablet] 0.5 mg PO BID 11/02/16 11/14/16 Amiloride/Hydrochlorothiazide 1 tab PO DAILY 11/02/16 11/14/16 [Amiloride HCl-Hctz 5-50 mg Tab] Citalopram Hydrobromide [Celexa] 40 mg PO DAILY 11/02/16 11/14/16 Gabapentin [Neurontin] 600 mg PO BID 11/02/16 11/14/16 Metformin HCl [Glucophage] 1,000 mg PO DAILY 11/02/16 11/14/16 Multivitamin [Multi-Day Vitamins] 1 tab PO DAILY 11/02/16 11/14/16 Pioglitazone HCl [Actos] 30 mg PO DAILY 11/02/16 11/14/16 Rosuvastatin Calcium [Crestor] 10 mg PO DAILY 11/02/16 11/14/16 Acetaminophen w/Cod 300-30 mg 1 each PO Q6HR PRN 11/14/16 11/14/16 [Tylenol w/Codeine #3] Previous Rx's Medication Instructions Recorded Lisinopril [Zestril] 10 mg PO DAILY #30 tab 11/05/16 hydrALAZINE [HydrALAZINE] 25 mg PO Q6HR #120 tab 11/05/16 Allergies Allergy/AdvReac Type Severity Reaction Status Date / Time Sulfa (Sulfonamide AdvReac See Verified 11/11/16 02:53 Antibiotics) Comments All systems ED: reviewed and negative except as stated. Past Medical History - Past Medical History Medical history: Reports: diabetes, hyperlipidemia, hypertension Surgical history: Reports: cholecystectomy, hysterectomy Psychiatric history: Reports: anxiety, depression - Social History Smoking Status: Never smoker Smokeless Tobacco Status: No Alcohol use: Reports: none Drug use: Reports: none Physical Exam Vital Signs Reviewed General: Patient is alert, oriented, and in no acute distress. HEENT: No facial asymmetry. Head is normocephalic and atraumatic. Oral mucosa moist. Trachea midline. Cardiovascular: Heart regular rate and rhythm without clicks, rubs, gallops, or murmurs. No JVD. PMI nondisplaced. No pedal edema. Bilateral posterior tibial pulses 2/4 and equal. Respiratory: Symmetric chest rise with good respiratory effort. Bilateral breath sounds are clear without wheezing, crackles, or rhonchi. Abdomen: Bowel sounds present normoactive x-4 quadrants. Abdomen is soft, nondistended, and nontender. No organomegaly noted. Musculoskeletal: Muscle strength 5/5 and symmetric bilaterally in upper and lower extremities. Patient has pain with right hip flexion. Patient chooses to not ambulate bedside secondary to pain. Neuro: Cranial nerves II through XII without deficit. Sensation light touch intact. GCS 15. Psych: Patient's affect is appropriate for situation. - General Limitations: no limitations General appearance: alert, in no apparent distress Course Course Narrative: Patient presents from home with daughters bedside for evaluation of right-sided anterior leg pain onset Sunday evening. She is on 3 times today-no loss of consciousness, no head trauma, no other injuries. Her hip pain is atraumatic. She is followed by Dr. Hilton of pain management and has received several epidural injections; patient's last injection was 4 weeks ago-she has no midline spinal tenderness, appears nontoxic, no pain to palpation of her spine or back. Patient's daughters are concerned for cauda equina syndrome as patient has had a several month history of incontinence of bladder which has worsened since Sunday evening. Clinically, I have a low suspicion for paraspinal abscess as patient has no tenderness in the midline or paraspinal of her thoracic or lumbar or sacral spines. There is no palpable abnormality, no visible erythema, and no warmth. Additionally, I have a low suspicion for cauda equina syndrome as the patient is neurovascular intact in the bilateral lower extremities, no history of trauma or neoplasm, she complains of burning not numbness of the perineum, and her bladder incontinence has been ongoing for several months. Bedside ultrasound performed by myself showed patient's bladder volume of 380mL. She does not have the urge to void and has no pain on my ultrasonic pressure. I suspect her dribbling incontinence is overflow incontinence. I discussed in detail with the patient's family my clinical suspicion that the patient's bladder symptoms are not from spinal cord compression but are rather a sequelae of the patient's age and can be explained by her large bladder volume on my bedside ultrasound. I discussed in detail why clinically do not suspect a paraspinal abscess or cauda equina. They express some frustration in that they simply wish to know exactly what is going on. I asked for their patients and reminded him of our plan of an MRI of the lumbar spine to definitively rule out spinal neurologic cause, paraspinal abscess, lumbosacral ulloa abnormalities/stenosis. They express understanding and appreciation. I discussed with the patient and her daughter at bedside the unremarkable MR results. I discussed the findings of chronic degenerative changes. They asked if that could be contributing to the patient's right leg pain/weakness and bladder incontinence. I explained to them that it is unlikely that these changes are chronic and gradual rather than acute for the more there is no MRI evidence of substantial stenosis and I reminded them of my benign neuromuscular lower extremity exam. Patient is the [id number] of emergency department BONNIE Allen. He will have both discussed in detail with the with the daughter and patient the low likelihood of an acute process. Even so, they expressed bewilderment as to why the patient is having these symptoms and has reduced function of her daily activities. It is my understanding that [facility] Allen spoke with the daughter and patient they are seemingly adamant that the patient not be placed in an assisted living facility. Patient is still unable to ambulate. As such, she is not safe for discharge home. Patient and daughter agree to admission for continued evaluation. I spoke with the admitting hospitalist who agrees to accept the patient. Vital Signs Temperature 98.3 F 11/14/16 13:55 Pulse Rate 67 11/14/16 13:55 Respiratory Rate 18 11/14/16 13:55 Blood Pressure 126/87 11/14/16 13:55 O2 Sat by Pulse Oximetry 95 11/14/16 13:55 Temperature 98.1 F 11/15/16 07:53 Pulse Rate 73 11/15/16 07:53 Respiratory Rate 14 11/15/16 07:53 Blood Pressure 120/73 11/15/16 07:53 O2 Sat by Pulse Oximetry 90 11/15/16 07:53 Oxygen Delivery Oxygen Delivery Room Air Medical Decision Making - Medical Records Medical records reviewed: Yes I reviewed the patient's medical records. - Lab Data Lab results reviewed: Yes I reviewed the patient's lab results. Result diagrams: 11/14/16 14:37 11/14/16 14:37 Lab Results 11/14/16 11/14/16 11/14/16 Range/Units 14:37 14:37 15:13 WBC 7.0 (4.3-11.1) K/mcL RBC 3.81 L (3.82-4.97) M/mcL Hgb 11.6 (11.5-15.4) g/dL Hct 36.4 (35.3-44.9) % MCV 95.5 (83.0-100.0) fL MCH 30.4 (28.0-33.3) pg MCHC 31.9 (31.6-35.5) g/dL RDW 13.2 (11.5-14.5) % Plt Count 201 (140-400) K/mcL MPV 11.0 (9.4-12.4) fL Immature Gran % 0.4 (0-4) % Seg Neutrophils % 59.5 % Lymphocytes % 28.2 % Monocytes % 9.9 % Eosinophils % 1.4 % Basophils % 0.6 % Neutrophils # 4.2 (1.6-8.9) K/mcL Lymphocytes # 2.0 (0.6-4.6) K/mcL Monocytes # 0.7 (0.0-1.3) K/mcL Eosinophils # 0.1 (0.0-0.6) K/mcL Basophils # 0.0 (0.0-0.2) K/mcL Sodium 135 L (136-145) mEq/L Potassium 4.9 H (3.5-4.5) mEq/L Chloride 101 (98-109) mEq/L Carbon Dioxide 28 (19-29) mEq/L BUN 21 H (7-20) mg/dL Creatinine 0.91 (0.57-1.11) mg/dL Est GFR ( Amer) > 60 (> 60) Est GFR (Non-Af Amer) 59 L (> 60) BUN/Creatinine Ratio 23 (6-26) Glucose 96 (70-99) mg/dL Calculated Osmolality 283 (280-300) Calcium 9.3 (8.6-10.8) mg/dL Urine Color Yellow (Yellow) Urine Clarity Clear (Clear) Urine pH 6.0 (5.0-8.0) pH Units Ur Specific [place] 1.013 (1.010-1.025) Urine Protein Negative (Neg-Trace) mg/dL Urine Glucose (UA) Normal (Normal) mg/dL Urine Ketones Negative (Negative) mg/dL Urine Blood Negative (Negative) Urine Nitrite Negative (Negative) Urine Bilirubin Negative (Negative) Urine Urobilinogen Normal (Normal) mg/dL Ur Leukocyte Esterase Small H (Negative) Urine Microscopic RBC 5-15 H (0-3) per hpf Urine Microscopic WBC 5-15 H (0-3) per hpf Ur Squamous Epith Cells Many H (None-Few) per lpf Urine Bacteria None Seen (None-Few) per hpf Hyaline Casts None Seen (None-Few) per lpf - Radiology Data Radiology results reviewed: Yes I reviewed the patient's radiology results. Hip X-Ray 11/14/16 14:22 IMPRESSION: No acute fracture or dislocation. Mild right hip degenerative change. D/ / 11/14/2016 15:30:26 Al Perea MD / frankie Interpreting Provider: Al Perea MD Lumbar Spine MRI 11/14/16 16:18 IMPRESSION: There may be slight interval increase in the degenerative signal and edema in the left L4-5 facet region. Otherwise, there has been no gross interval change. See above for details of each level D/ / Justin Campos / Justin Campos Interpreting Provider: Justin Campos Sacrum/Coccyx MRI 11/14/16 16:18 IMPRESSION: 1. No explanation for the patient's right lower extremity pain and weakness. 2. Mild bilateral sacroiliac joint degenerative change. D/ / South Mccullough MD / South Mccullough MD Interpreting Provider: South Mccullough MD Elbow X-Ray 11/14/16 16:29 IMPRESSION: No acute osseous abnormality of the right elbow. D/ / Markus Teran MD / Markus Teran MD Interpreting Provider: Markus Teran MD Attestation Statement - Attestation Attestation: I examined this patient and my medical decision-making was reviewed with the Resident Physician, Dr. Feliciano. I agree with the documented findings, disposition and treatment plan as described except to the extent set forth below. Patient is an 81-year-old white female who is brought in by a family member today secondary to multiple falls as a result of some worsening right groin and anterior thigh pain. Patient states that this pain is just been very significant and has been inhibiting her from ambulating and being able to weight -bear comfortably. Patient has had reportedly 3 falls all of which she denies any injuries from. Patient states that she has been having this gradually worsening groin pain and this pain proceeded any of the falls that she has had today. Patient does have a history of chronic low back pain for which she sees Dr. Starr and receives epidural injections, last of which was proximally a month ago which helps her back pain that radiates into her lower extremities and these symptoms she is denying currently. Patient typically infiltrates with a cane or a walker depending on her comfort level and despite using these assisted forms of ambulation she is still having falls at home. Patient denies any preceding symptoms no dizziness or lightheadedness no difficulty with vision no acute focal extremity weakness. Patient's daughter also mentioned she has been having urinary dribbling and it appears looking through her records that she has been having some urinary retention issues and at her last admission required a Perez catheter. Clinically suspect possible overflow incontinence. We will ensure that she does not have an infection. Agree patient's physical exam findings as documented. Patient was in no acute distress resting comfortably at bedside neurologically intact she is awake alert and oriented 4 with no focal neurologic deficits and clear speech. Patient had lab evaluation including urinalysis which was negative for any infection. Due to her epidural injections we will obtain MRI evaluation of the lumbosacral spine to ensure that there is no infection that could be contributing to these symptoms or her falls. All imaging studies were within normal limits and there is no clear etiology at this time of her right groin pain and right thigh pain. Patient is unable to ambulate secondary to these symptoms so patient will be admitted for further evaluation and possible extended care facility placement with rehabilitation. We did place a Perez due to urinary retention as bedside ultrasound showed her bladder was holding over 400 mL of urine. There is no infection on her urinalysis today [facility] patient will need further evaluation for the urinary retention as well. Patient remained hemodynamically stable and is resting comfortably has no pain unless she is weightbearing. Family agrees with plans for admission and this was discussed with hospitalist who accepted the patient for further evaluation and management.
[2016-11-14 14:48] LABS: Basophils % 0.6 %; Eosinophils # 0.1 K/mcL (0.0-0.6); Eosinophils % 1.4 %; Hematocrit 36.4 % (35.3-44.9); Hemoglobin 11.6 g/dL (11.5-15.4); Immature Granulocytes % 0.4 % (0-4); Lymphocytes % 28.2 %; Mean Corpuscular HGB Conc 31.9 g/dL (31.6-35.5); Mean Corpuscular Hemoglobin 30.4 pg (28.0-33.3); Mean Corpuscular Volume 95.5 fL (83.0-100.0); Monocytes # 0.7 K/mcL (0.0-1.3); Monocytes % 9.9 %; Neutrophils # 4.2 K/mcL (1.6-8.9); Platelet Count 201 K/mcL (140-400); Red Blood Count 3.81 M/mcL (3.82-4.97); Red Cell Distribution Width 13.2 % (11.5-14.5); Segmented Neutrophils % 59.5 %
[2016-11-14 15:00] LABS: BUN/Creatinine Ratio 23 (6-26); Blood Urea Nitrogen 21 mg/dL (7-20); Calcium 9.3 mg/dL (8.6-10.8); Carbon Dioxide 28 mEq/L (19-29); Chloride 101 mEq/L (98-109); Glucose 96 mg/dL (70-99); Osmolality,Calculated 283 (280-300); Potassium 4.9 mEq/L (3.5-4.5); Sodium 135 mEq/L (136-145); eGFR For African Americans > 60 (> 60); eGFR For Non-African Americans 59 (> 60)
[2016-11-14 15:21] LABS: Bilirubin,Urine Negative (Negative); Blood,Urine Negative (Negative); Clarity,Urine Clear (Clear); Color,Urine Yellow (Yellow); Glucose,Urine (UA) Normal (Normal); Ketones,Urine Negative (Negative); Leukocyte Esterase,Urine Small (Negative); Nitrite,Urine Negative (Negative); Protein,Urine Negative (Neg-Trace); Specific Gravity,Urine 1.013 (1.010-1.025); Urobilinogen,Urine Normal (Normal)
[2016-11-14 15:24] LABS: Bacteria,Urine None Seen per hpf (None-Few); Hyaline Casts,Urine None Seen per lpf (None-Few); Squamous Epithelial Cell,Urine Many per lpf (None-Few)
[2016-11-15] MEDS ORDERED: ALPRAZolam 0.5 MG TABLET PO ONE (02:59)
[2016-11-15] MEDS: Gabapentin 300 MG CAPSULE PO SCH ×5 (02:59→21:08)
[2016-11-15] MEDS: *HR* Acetaminophen w/Cod 300-30 mg 1 TAB TABLET PO PRN ×2 (03:00→21:08)
[2016-11-15] MEDS ORDERED: Naloxone 0.4 MG/ML INJ IVP PRN (07:57)
[2016-11-15] MEDS ORDERED: *HR* Acetaminophen w/Cod 300-30 mg 1 TAB TABLET PO PRN (07:58)
[2016-11-15] MEDS ORDERED: D5% in Water 1,000 ML IVC PRN (08:00)
[2016-11-15] MEDS ORDERED: Dextrose Gel 15 GM PO PRN ×2 (08:00)
[2016-11-15] MEDS ORDERED: *HR* Dextrose 50 % in Water (Syg) 50 ML SYRINGE IVP PRN (08:00)
--- NOTE | 2016-11-15 08:07 | Internal Med History&Physical ---
Date of Encounter: 11/15/16 Time of Encounter: 08:00 Assessment and Plan (1) Inability to ambulate due to right hip Current visit: Yes Status: Acute Imaging neg thus far. Am not convinced we have ruled out an occult right fem neck fx with imaging that was done in ER Will consult orthopedic surgery (pt is followed by Dr. Starr) PT, pain control w stool softeners as well. Increased neurontin to 600 mg po tid. Given some of the pain is muscular, I will add on a CK as well 0830: I discussed the case with Dr. Starr who will see her in consult (2) HTN (hypertension) Current visit: No Status: Acute Stable, continue home meds Qualifiers: Hypertension type: essential hypertension Qualified Code(s): I10 - Essential (primary) hypertension (3) Diabetes mellitus Current visit: No Status: Acute Stable, corrective insulin ordered, monitor Qualifiers: Diabetes mellitus type: type 2 Diabetes mellitus complication status: without complication Diabetes mellitus salvage determiner insulin use: without [place] [facility] use Qualified Code(s): E11.9 - Type 2 diabetes mellitus without complications (4) Urinary retention Current visit: No Status: Acute DC cole that was placed. This is a chronic issue. Pt has WBC in urine but clinically does not have a UTI. No abx indicated. Internal Medicine - H&P: HPI Admitted From: Emergency Dept Plans for Post Hospital Care: Home History of present illness: Ms. Barclay is a 81 year old female with PMH DJD, DM2, Hyperlipidemia and HTN who has been receiving outpt epidural inj for intract back pain, last injection 4 weeks ago. She reports a 1 week hx of pain and weakness in right leg. Pain is on ant thigh and deep right groin, usually comes on near end of day and is severe to the point it hurts too much to walk. She denies injury. She reports chronic urinary incont but this has not changed. She was seen in the ER with mult images including xray right hip, MR of L spine and Sacrum/coccyx with no sig abn other than DJD. Due to inability to ambulate, pt was admitted. Pt reports she fell 3 times yesterday. She did strike her right elbow and xrays were neg for fx. she did not hit her head of experience LOC. No neck pain. Past Med Surg Social Fam HX - Past Medical History Medical history: diabetes, hyperlipidemia, hypertension Psychiatric history: anxiety, depression - Past Surgical History Surgical History: cholecystectomy, hysterectomy - Social History Smoking Status: Never smoker Smokeless Tobacco Status: No Alcohol use: none Drug use: none Occupational status: retired Current living situation: Home Activity Level: Independent ambulation Recent Out of Country Travel Within the Last 8 Weeks: No Exposure or Possible Exposure to Illness During Travel: No - Family History Mother Hx Family Cardiac Disorders: Yes Hx Family Respiratory Disorders: No Hx Family Cancer: No Hx Family GI Disorders: No Hx Family Genitourinary Disorders: No Hx Family Endocrine Disorder: Yes (diabetes) Hx Family Musculoskeletal Disorders: No Hx Family Neuromuscular Disorders: No Hx Family Neurologic Disorders: No Hx Family HEENT Disorders: No Hx Family Autoimmune Disorders: No Hx Family Reproductive Disorders: No Hx Family Psychosocial Disorders: No Hx Family Medical Disorders: No - Additional Family History Additional family history: Fam hx reviewed and noncontributory Internal Medicine - H&P: Meds ALPRAZolam [Xanax 0.5 MG Tablet] 0.5 mg PO BID 11/02/16 [History] Amiloride/Hydrochlorothiazide [Amiloride HCl-Hctz 5-50 mg Tab] 1 tab PO DAILY [History] Citalopram Hydrobromide [Celexa] 40 mg PO DAILY 11/02/16 [History] Gabapentin [Neurontin] 600 mg PO BID 11/02/16 [History] Metformin HCl [Glucophage] 1,000 mg PO DAILY 11/02/16 [History] Multivitamin [Multi-Day Vitamins] 1 tab PO DAILY 11/02/16 [History] Pioglitazone HCl [Actos] 30 mg PO DAILY 11/02/16 [History] Rosuvastatin Calcium [Crestor] 10 mg PO DAILY 11/02/16 [History] Lisinopril [Zestril] 10 mg PO DAILY #30 tab 11/05/16 [Rx] hydrALAZINE [HydrALAZINE] 25 mg PO Q6HR #120 tab 11/05/16 [Rx] Acetaminophen w/Cod 300-30 mg [Tylenol w/Codeine #3] 1 each PO Q6HR PRN [History] 3 Allergy/AdvReac Type Severity Reaction Status Date / Time Sulfa (Sulfonamide AdvReac See Verified 11/11/16 02:53 Antibiotics) Comments All Systems PM: A 10-system review of systems was performed and is negative for pertinent findings except as documented above in the HPI. Review of systems: Other than HPI a 10 pt ROS is negative - Constitutional Vitals: Temp Pulse Resp BP Pulse Ox 98.1 F 73 14 120/73 90 11/15/16 07:53 11/15/16 07:53 11/15/16 07:53 11/15/16 07:53 11/15/16 07:53 General appearance: Present: A&O X 3, no acute distress - Extremities Exam Extremities exam: Present: tenderness (right ant thigh and deep right groin), warm, radial pulses palpable and symmetrical. Absent: calf tenderness, cyanotic , pedal edema Internal Med - H&P Results - Labs CBC & Chem 7: 11/14/16 14:37 11/14/16 14:37
[2016-11-15 09:22] LABS: Hemoglobin A1C 6.2 %
[2016-11-15] MEDS: ALPRAZolam 0.5 MG TABLET PO SCH ×2 (09:39→21:08)
[2016-11-15] MEDS: *HR* Pioglitazone 30 MG TABLET PO SCH (09:41)
[2016-11-15] MEDS: Insulin LISPRO 300 UNITS/3 ML VIAL SQ SCH ×2 (12:14→17:46)
[2016-11-15] MEDS: hydrALAZINE 25 MG TABLET PO SCH ×2 (16:49→17:46)
--- NOTE | 2016-11-15 20:25 | Pain Management History & Phys ---
Date of Encounter: 11/15/16 Time of Encounter: 20:20 Assessment and Plan (1) Transient right leg weakness Current Visit: Yes Status: Acute The assessment and plan as outlined above was discussed with the patient and/or family members who expressed understanding and agreement. All questions were answered. The patient and i discussed that it would be prudent to get Dr Meier involved for his opinion. The right LE may be affected by the L3-4 and L4-5 disc issues present on MRI. However results are not severe or critical in nature based on reading. However this is a supine MRI and the patient is most symptomatic upright. (2) Lumbar stenosis Current Visit: Yes Status: Chronic The assessment and plan as outlined above was discussed with the patient and/or family members who expressed understanding and agreement. All questions were answered. Based on the MRI, and compared to radiology results from [facility], she seems to have progressed somewhat. Once again recommend Renea consultation. (3) Right hip pain Current Visit: Yes Status: Acute The assessment and plan as outlined above was discussed with the patient and/or family members who expressed understanding and agreement. All questions were answered. I cannot rule out pain from the right hip joint. This radiation to the groin appears to be somewhat of a newer complaint. Will get right hip XR. History of Present Illness Chief complaint: Right leg weakness and pain, bhupendra pain HPI: Ms. Barclay is a 81 year old female Has been known to me as an outpatient where we were working her up and planning to treat mainly facet joint related pain. However, over the last two days she has had progressive symptoms of leg weakness and falls as reported by daughter who called us yesterday. We recommended that the patient be seen in the ED on 02/2017 given her change in presentation. Interviewed at bedside, patient found to be resting comfortably talking on the phone. She complains of unsteadiness on her right leg. Fear of falls. Severe back pain and leg pain when upright. Pain shoots from her back to her right thigh. He pain also radiates to the groin. Reported difficulty urinating yesterday but unclear if this symptom persists today. No bowel incontinence. Past Med Surg Social Fam HX - Past Medical History Source: old records reviewed Medical history: diabetes, hyperlipidemia, hypertension, other (Lumbar stenosis) Psychiatric history: anxiety, depression - Past Surgical History Surgical History: cholecystectomy, hysterectomy - Social History Smoking Status: Never smoker Smokeless Tobacco Status: No Alcohol use: none Drug use: none - Family History Mother Hx Family Cardiac Disorders: Yes Hx Family Respiratory Disorders: No Hx Family Cancer: No Hx Family GI Disorders: No Hx Family Genitourinary Disorders: No Hx Family Endocrine Disorder: Yes (diabetes) Hx Family Musculoskeletal Disorders: No Hx Family Neuromuscular Disorders: No Hx Family Neurologic Disorders: No Hx Family HEENT Disorders: No Hx Family Autoimmune Disorders: No Hx Family Reproductive Disorders: No Hx Family Psychosocial Disorders: No Hx Family Medical Disorders: No Medications and Allergies ALPRAZolam [Xanax 0.5 MG Tablet] 0.5 mg PO BID 11/02/16 [History] Amiloride/Hydrochlorothiazide [Amiloride HCl-Hctz 5-50 mg Tab] 1 tab PO DAILY [History] Citalopram Hydrobromide [Celexa] 40 mg PO DAILY 11/02/16 [History] Gabapentin [Neurontin] 600 mg PO BID 11/02/16 [History] Metformin HCl [Glucophage] 1,000 mg PO DAILY 11/02/16 [History] Multivitamin [Multi-Day Vitamins] 1 tab PO DAILY 11/02/16 [History] Pioglitazone HCl [Actos] 30 mg PO DAILY 11/02/16 [History] Rosuvastatin Calcium [Crestor] 10 mg PO DAILY 11/02/16 [History] Lisinopril [Zestril] 10 mg PO DAILY #30 tab 11/05/16 [Rx] hydrALAZINE [HydrALAZINE] 25 mg PO Q6HR #120 tab 11/05/16 [Rx] Acetaminophen w/Cod 300-30 mg [Tylenol w/Codeine #3] 1 each PO Q6HR PRN [History] 3 Allergy/AdvReac Type Severity Reaction Status Date / Time Sulfa (Sulfonamide AdvReac See Verified 11/11/16 02:53 Antibiotics) Comments Review of Systems - Constitutional Constitutional ROS IM: as per HPI - Cardiovascular Cardiovascular ROS: no chest pain, no leg edema, no lightheadedness - Respiratory Respiratory: no pain on inspiration, no pain with cough - Gastrointestinal Gastrointestinal: no abdominal pain, no constipation, no diarrhea, no heartburn - Genitourinary Genitourinary ROS: difficulty urinating - Musculoskeletal Musculoskeletal ROS: abnormal gait, radiating pain into limb left: hip pain, knee pain - Integumentary Integumentary: no erythema, no lesions, no swelling - Neurological Neurological ROS: abnormal gait - Psychiatric Psychiatric general: no anxiety, no confusion, no depression - Hematologic/Lymphatic Hematologic/Lymphatic pediatric: no easy bleeding, no easy bruising Physical Exam Initial Vital Signs Temp Pulse Resp BP Pulse Ox 98.3 F 67 18 126/87 95 11/14/16 13:55 11/14/16 13:55 11/14/16 13:55 11/14/16 13:55 11/14/16 13:55 - General physical appearance General physical appearance: awake & oriented, no distress, moderate pain - Eyes Eye exam: normal ocular movement - Respiratory normal respiratory effort - Cardiovascular Cardiovascular exam: Present: RRR - Neurologic other (SLR test equivocal. Valsalva positive. ) - Musculoskeletal Musculoskeletal: other (4/5 right LE strength but pain affected results. ) Musculoskeletal: Straight leg: bilateral (negative) - Psychiatric Psychiatric: oriented to time, oriented to person, oriented to place Results - Labs 11/14/16 14:37 11/14/16 14:37 Abnormal lab results RBC 3.81 M/mcL (3.82-4.97) L 11/14/16 14:37 Sodium 135 mEq/L (136-145) L 11/14/16 14:37 Potassium 4.9 mEq/L (3.5-4.5) H 11/14/16 14:37 BUN 21 mg/dL (7-20) H 11/14/16 14:37 Est GFR (Non-Af Amer) 59 (> 60) L 11/14/16 14:37 POC Glucose 212 (58-89) H 11/15/16 15:52 Hemoglobin A1c 6.2 % (-5.6) H 11/15/16 08:42 Creatine Kinase 219 Units/L (29-168) H 11/15/16 08:42 Ur Leukocyte Esterase Small (Negative) H 11/14/16 15:13 Urine Microscopic RBC 5-15 per hpf (0-3) H 11/14/16 15:13 Urine Microscopic WBC 5-15 per hpf (0-3) H 11/14/16 15:13 Ur Squamous Epith Cells Many per lpf (None-Few) H 11/14/16 15:13 Diabetes panel 11/15/16 Range/Units 08:42 Hemoglobin A1c 6.2 H ( - 5.6) % All other labs normal. - Imaging Additional studies: (11/14/2016 MRI reviewed: DATE OF SERVICE: 11/14/16 ACCESSION NUMBERS(S): [id number] PROCEDURE(S): MR lumbar spine wo con REASON FOR EXAM: RLE weakness, hx bladder incontinence, hx epidural 0 cc: Librado Long; Tori Smith; Agustin Feliciano; EXAMINATION: MRI OF THE LUMBAR SPINE WITHOUT CONTRAST, 11/14/2016 7:36 pm TECHNIQUE: Multiplanar multisequence MRI of the lumbar spine was performed without the administration of intravenous contrast. COMPARISON: September 12 2016 HISTORY: ORDERING SYSTEM PROVIDED HISTORY: RLE weakness, hx bladder incontinence, hx epidural Additional tech notes: [facility] [address] [facility] BED 22 FINDINGS: BONES/ALIGNMENT: Height and alignment is stable. Multilevel disc desiccation and disc space narrowing is again noted. Degenerative endplate signal changes are again noted. Left L4-5 facet joint degenerative signal changes and edema is again noted, slightly increased. Right L4-5 facet joint edema is again noted. SPINAL CORD: Conus terminates at L2 and is grossly normal in appearance. Punctate intermediate T2 signal is noted projecting over the spinal cord at T11-T12. Similar compared to the prior and likely represent volume averaging from adjacent facet hypertrophic change. SOFT TISSUES: No paraspinal mass identified. L1-L2: Endplate and facet hypertrophic changes are noted. Very minimal disc bulging is noted. L2-L3: Mild disc bulging is noted diffusely, slightly greater on the left. Mild proximal foraminal narrowing on the left is noted. Facet hypertrophic changes are noted L3-L4: Diffuse disc bulging is noted with annular tear. Mild to moderate left and moderate right foraminal narrowing is noted. Facet and ligament hypertrophic changes are noted. Narrowing of the canal is again noted. L4-L5: Diffuse disc bulging is noted. Right paracentral and proximal foraminal protrusion with annular tear is noted. Right greater than left foraminal narrowing is again noted. L5-S1: Mild disc bulging is noted with a small central protrusion with annular tear. Similar findings were present on the prior. There is slight downward migration toward the proximal superior lateral recesses, unchanged. Extension into the left foramen is noted. Narrowing of the proximal aspects of both neural foramen is noted, slightly greater on the left. MR/MR lumbar spine wo con IMPRESSION: There may be slight interval increase in the degenerative signal and edema in the left L4-5 facet region. Otherwise, there has been no gross interval change.
[2016-11-16] MEDS: Insulin LISPRO 300 UNITS/3 ML VIAL SQ SCH ×5 (00:52→23:46)
[2016-11-16] MEDS: hydrALAZINE 25 MG TABLET PO SCH ×5 (00:52→23:45)
[2016-11-16] MEDS: Gabapentin 300 MG CAPSULE PO SCH ×3 (09:31→20:31)
[2016-11-16] MEDS: ALPRAZolam 0.5 MG TABLET PO SCH ×2 (09:32→20:30)
[2016-11-16] MEDS: *HR* Pioglitazone 30 MG TABLET PO SCH (09:32)
[2016-11-16] MEDS: *HR* Acetaminophen w/Cod 300-30 mg 1 TAB TABLET PO PRN (17:39)
--- NOTE | 2016-11-16 18:10 | Internal Med Progress Note ---
Date of Encounter: 11/16/16 Time of Encounter: 15:30 - Assessment and plan (1) Right leg pain Current Visit: Yes Status: Acute Assessment and plan: Onset 1 week ago. She reports weakness in the anterior thigh pain, difficulty ambulating, states that her leg "gives out." There is noticeable weakness to right lower extremity. Patient has to go either hold or left extremity to perform neuro tests. Patient has had multiple x-rays, CAT scans, MRIs that are not definitive for cause of problems. Patient has been seen by Dr. Starr who also sees for outpatient for epidurals. The patient has 40 year history of back pain with no known injury. Dr. Starr came back to [facility] and recommended hip MRI w/o contrast to assess for possible labral tear. PT/OT consults still pending. There is no hip fx per xray, can evaluate for needs. Pain control as needed PT/OT consults pending Hip MRI ordered and pending Consult pain management and Dr Meier, appreciate their consultations and recommendations Lumbar Spine MRI 11/14/16 16:18 IMPRESSION: There may be slight interval increase in the degenerative signal and edema in the left L4-5 facet region. Otherwise, there has been no gross interval change. See above for details of each level D/ / Justin Campos / Justin Campos Interpreting Provider: Justin Campos Sacrum/Coccyx MRI 11/14/16 16:18 IMPRESSION: 1. No explanation for the patient's right lower extremity pain and weakness. 2. Mild bilateral sacroiliac joint degenerative change. D/ / South Mccullough MD / South Mccullough MD Interpreting Provider: South Mccullough MD Elbow X-Ray 11/14/16 16:29 IMPRESSION: No acute osseous abnormality of the right elbow. D/ / Markus Teran MD / Markus Teran MD Interpreting Provider: Markus Teran MD Hip X-Ray 11/16/16 07:00 IMPRESSION: 1. No acute abnormality identified of the bony pelvis or right hip. 2. Scattered degenerative changes. D/ / Maikol Matute MD / Maikol Matute MD Interpreting Provider: Maikol Matute MD (2) Inability to ambulate due to right hip Current Visit: Yes Status: Acute Assessment and plan: Plan as above. (3) Transient right leg weakness Current Visit: Yes Status: Acute Assessment and plan: There is noticeable weakness in right leg compared to left leg. Pt must use hands to assist with neuro testing of right leg. No obvious cause based on imaging thus far. Hip MRI is pending at this time. PT/OT consults pending, as well. Plan as above. (4) Lumbar stenosis Current Visit: Yes Status: Chronic (5) Right hip pain Current Visit: Yes Status: Acute Assessment and plan: Plan as above. (6) Obesity (BMI 30.0-34.9) Current Visit: Yes Status: Acute Assessment and plan: Chronic. Lifestyle changes. (7) DVT prophylaxis Current Visit: No Status: Acute Assessment and plan: Lovenox SQ. Pt is on bedrest due to increased fall risk and inability to bear weight. - Time Spent With Patient less than 15 minutes - Subjective Interval history: Patient was seen and assessed at 1530. She is alert, oriented 3, speech is clear. Patient reports that in October she was admitted for anuria had multiple tests done, no results and eventually began urinating again. She reports 40 year history of back pain with no known injury. She also reports new onset right anterior thigh pain for 7 days. She was admitted from November 02 of November 05 for back pain. She said on Sunday she could not walk, states that her leg "gives way". She is a patient of Dr. Starr who does epidurals normally. She also reports that she was to start physical therapy 3 times a week at home and has missed the first visit due to being in the hospital currently. Patient is aware that Dr. Meier will see her either after office hours tonight or in the morning. - Constitutional Vitals: Temp Pulse Resp BP Pulse Ox 98.2 F 68 17 128/59 93 11/16/16 15:14 11/16/16 15:14 11/16/16 15:14 11/16/16 15:14 11/16/16 15:14 General appearance: Present: mild distress, A&O X 3, pleasant, obese, answers questions appropriately - Head Head exam: Present: atraumatic, normal inspection, normocephalic - Eye Eye exam: Present: EOMI, normal appearance, conjuntiva pink, sclera anicteric. Absent: nystagmus - Neck Neck exam general surgery: Present: supple, trachea midline. Absent: lymphadenopathy, tenderness - Respiratory Respiratory exam: Present: CTAB. Absent: accessory muscle use, rales, rhonchi, wheezes - Cardiovascular Cardiovascular exam: Present: RRR, +S1, +S2. Absent: diastolic murmur, gallop, rubs, systolic murmur - GI/Abdominal GI/Abdominal exam: Present: distended, normal bowel sounds, soft, no peritoneal signs. Absent: hepatomegaly, tenderness - Extremities Exam Extremities exam: Present: normal capillary refill, warm, radial pulses palpable and symmetrical. Absent: calf tenderness, cyanotic, pedal edema, tenderness - Neurological Exam Neurological exam: Present: alert, oriented X3. Absent: altered, strengths equal and symetr throughout, facial droop, speech deficit - Expanded Neurological Exam Neurological exam expanded: Absent: memory loss-recent event, memory loss- remote event Patient oriented to: Present: person, place, time Neuro motor strength exam: LUE: 4, RUE: 4, LLE: 4, RLE: 2/1 - Skin Skin exam: Present: dry, intact, normal color, warm. Absent: rash Internal Medicine: Result - Labs CBC & Chem 7: 11/14/16 14:37 11/14/16 14:37 - Impressions Impressions Hip X-Ray 11/16/16 07:00 IMPRESSION: 1. No acute abnormality identified of the bony pelvis or right hip. 2. Scattered degenerative changes. D/ / Maikol aMtute MD / Maikol Matute MD Interpreting Provider: Maikol Matute MD Consult Discharge Plan - Plan Referrals: Librado Long Jr, MD [Primary Care Provider] -
[2016-11-17] MEDS: hydrALAZINE 25 MG TABLET PO SCH ×3 (06:04→18:19)
[2016-11-17] MEDS: Insulin LISPRO 300 UNITS/3 ML VIAL SQ SCH ×3 (06:06→18:19)
[2016-11-17] MEDS ORDERED: *HR* Enoxaparin 40 MG/0.4 ML SYRINGE SQ SCH (07:00)
[2016-11-17] MEDS: ALPRAZolam 0.5 MG TABLET PO SCH ×2 (09:06→18:18)
[2016-11-17] MEDS: *HR* Acetaminophen w/Cod 300-30 mg 1 TAB TABLET PO PRN ×2 (09:06→18:18)
[2016-11-17] MEDS: *HR* Pioglitazone 30 MG TABLET PO SCH (09:07)
[2016-11-17] MEDS: Gabapentin 300 MG CAPSULE PO SCH ×2 (09:07→15:03)
--- NOTE | 2016-11-17 13:29 | Discharge Summary ---
Date of Encounter: 11/17/16 Time of Encounter: 12:40 - Discharge Diagnosis (1) Right leg pain Priority: Primary Status: Acute Comments: Pt was able to move from bed to chair with minimal difficulty. She is sitting in chair at bedside with left leg crossed over right without discomfort. Continue pain control at SNF Continue Pt/OT at SNF (2) Inability to ambulate due to right hip Priority: Secondary Status: Acute Comments: Plan as above. (3) Transient right leg weakness Priority: Secondary Status: Acute Comments: There is noticeable weakness in right leg compared to left leg. Pt must use hands to assist with neuro testing of right leg. No obvious cause based on imaging thus far. Hip MRI is pending at this time. PT/OT consults pending, as well. Plan as above. (4) Lumbar stenosis Priority: Secondary Status: Chronic Comments: Per MRI. Plan as above. (5) Right hip pain Priority: Secondary Status: Acute Comments: Lumbar Spine MRI 11/14/16 16:18 IMPRESSION: There may be slight interval increase in the degenerative signal and edema in the left L4-5 facet region. Otherwise, there has been no gross interval change. See above for details of each level D/ / Justin Campos / Justin Campos Interpreting Provider: Justin Campos Sacrum/Coccyx MRI 11/14/16 16:18 IMPRESSION: 1. No explanation for the patient's right lower extremity pain and weakness. 2. Mild bilateral sacroiliac joint degenerative change. D/ / South Mccullough MD / South Mccullough MD Interpreting Provider: South Mccullough MD Hip X-Ray 11/16/16 07:00 IMPRESSION: 1. No acute abnormality identified of the bony pelvis or right hip. 2. Scattered degenerative changes. D/ / Maikol Matute MD / Maikol Matute MD Interpreting Provider: Maikol Matute MD Hip MRI 11/16/16 18:17 IMPRESSION: 1. Mild bilateral hip, moderate pubic symphysis, and mild bilateral sacroiliac joint degenerative changes. 2. No acute osseous abnormality. 3. Mild bilateral gluteus minimus insertional tendinitis and partial-thickness tearing. 4. Chronic low-grade strain of the right hamstring tendon origin. 5. Colonic diverticulosis. Status post hysterectomy. D/ / South Mccullough MD / South Mccullough MD Interpreting Provider: South Mccullough MD (6) Obesity (BMI 30.0-34.9) Priority: Secondary Status: Chronic Comments: Chronic. Lifestyle changes. (7) DVT prophylaxis Priority: Secondary Status: Acute Comments: Lovenox SQ. Pt has been on bedrest due to fall precautions, she is up at chair at bedside. - Discharge Medications Prescriptions: Acetaminophen w/Cod 300-30 mg [Tylenol w/Codeine #3] 1 each PO Q6HR PRN #8 tab PRN Reason: Pain Home Medications: ALPRAZolam [Xanax 0.5 MG Tablet] 0.5 mg PO BID 11/02/16 [History] Amiloride/Hydrochlorothiazide [Amiloride HCl-Hctz 5-50 mg Tab] 1 tab PO DAILY [History] Citalopram Hydrobromide [Celexa] 40 mg PO DAILY 11/02/16 [History] Gabapentin [Neurontin] 600 mg PO BID 11/02/16 [History] Metformin HCl [Glucophage] 1,000 mg PO DAILY 11/02/16 [History] Multivitamin [Multi-Day Vitamins] 1 tab PO DAILY 11/02/16 [History] Pioglitazone HCl [Actos] 30 mg PO DAILY 11/02/16 [History] Rosuvastatin Calcium [Crestor] 10 mg PO DAILY 11/02/16 [History] Lisinopril [Zestril] 10 mg PO DAILY #30 tab 11/05/16 [Rx] hydrALAZINE [HydrALAZINE] 25 mg PO Q6HR #120 tab 11/05/16 [Rx] Acetaminophen w/Cod 300-30 mg [Tylenol w/Codeine #3] 1 each PO Q6HR PRN #8 tab 11/17/16 [Rx] Allergies/Adverse Reactions: 3 Allergy/AdvReac Type Severity Reaction Status Date / Time Sulfa (Sulfonamide AdvReac See Verified 11/11/16 02:53 Antibiotics) Comments Procedures/tests Complete & Pending: Procedures Performed prior 72 hours Category Date Time Status MR hip RT wo con [MR] Routine MRI 11/16/16 18:17 Completed Date of admission: 11/14/16 20:17 Primary care physician: Librado Long Jr, MD Consults: 11/15/16 08:01 Consult to Physical Therapy [CONS] Routine Comment: Evaluate, develop and implement POC Reason for Consult: hip pain, diffic ambulating 11/15/16 08:28 Consult to Orthopedic Surgery [CONS] Routine Consulting Provider: [facility] Reason for Consult: Intract right hip and leg pain Dr. Starr Time Notified: 08:30 Call Completed: Yes 11/16/16 14:57 Consult to Physician [CONS] Routine Consulting Provider: Justin Meier Jr Reason for Consult: intract hip pain, back pain Time Notified: 14:58 Call Completed: Yes 11/16/16 18:20 Consult to Pain Management [CONS] Routine Consulting Provider: [facility] Reason for Consult: consult completed Call Completed: Yes 11/17/16 08:41 Consult to Occupational Therapy [CONS] Routine Comment: Evaluate, develop and implement POC Reason for Consult: RLE weakness Consult to Neurological Surgery Teacher [CONS] Routine Reason for SW Consult: discharge planning/rehab Discharging clinician: Cherri Rouse Anticipated date of discharge: 11/17/16 - Patient Status Disposition: Transfer Inpatient Rehab Fac Condition: Good Functional capacity at discharge: uses cane/walker Overall status at discharge: patient is not back to baseline - Discharge Instructions Follow Up With: Justin Meier Jr, MD [Partnered Physician] - 12/15/16 11:00 am Nieves Stinson CNP [Advanced Practice Nurse] - 11/21/16 10:00 am Babita Fish MD [Partnered Physician] - 12/13/16 11:45 am Additional Instructions: EMG to be scheduled outpatient at neuro appointement. Pt will follow up with Dr. Meier after EMG. - Diet and Activity Activity: ambulate only with your walker, as per physical therapy Diet: advance to your usual diet Hospital course: Ms. Barclay is a 81 year old female with past medical history of chronic back pain for 40 years without known injury, hypertension, diabetes, hereditary peripheral neuropathy, bradycardia, obesity. Patient has been seeing Dr. Starr and receiving epidural injections for intractable back pain, last injection was 4 weeks ago. She reports a one-week history of increasing pain as well as weakness in her right leg. Pain is on anterior PA in deep right groin, usually calms it in the day and severe to the point where she cannot walk. She denies any injury. She reports chronic urinary incontinence but this has not changed with this current problem. All testing has been negative. Patient was admitted for inability to ambulate and reports 3 falls at home prior to admission. She also reports being dropped a couple of times yesterday while inpatient, however there is no record of this in staff is not aware of any incidents. Patient was evaluated by Dr. Starr while inpatient, he recommended consultation with Dr. Meier. Dr. Meier has not much new to recommend other than an EMG and a neurology consult. He will see the patient in the office after both of those are completed. Patient had a hip x-ray that was negative, hip MRI shows mild bilateral hip, moderate pubic symphysis, mild bilateral SI joint degenerative changes no acute abnormalities, mild bilateral gluteus minimus insertional tendinitis and partial thickness tearing, chronic low-grade strain right hamstring. Sacrum and coccyx MRI showed mild bilateral SI joint degenerative changes and no explanation for the pain and weakness. LS-spine MRI showed possible slight interval increase in degenerative signal and edema and left L4-L5 facet region. Otherwise, there was no acute change. She is sitting in the chair at her bedside at this time, family assisted her. She reports minimal difficulty and is sitting with left leg crossed over right leg. Patient is going to go to rehabilitation as recommended by physical therapy. She is going to [facility] for rehab. - Time Spent with Patient Total time spent providing and/or coordinating discharge services: Less than 30 minutes - Constitutional Vitals: Temp Pulse Resp BP Pulse Ox 97.6 F 63 14 143/70 92 11/17/16 11:17 11/17/16 11:11/17/16 11:17 11/17/16 11:17 11/17/16 11:17 General appearance: Present: cooperative, mild distress, A&O X 3, pleasant, obese, answers questions appropriately - Head Head exam: Present: atraumatic, normal inspection, normocephalic - Eye Eye exam: Present: normal appearance, conjuntiva pink, sclera anicteric - Neck Neck exam general surgery: Present: supple, trachea midline. Absent: lymphadenopathy, tenderness - Respiratory Respiratory exam: Present: CTAB. Absent: accessory muscle use, chest wall tenderness, rales, rhonchi, wheezes - Cardiovascular Cardiovascular exam: Present: RRR, +S1, +S2. Absent: diastolic murmur, gallop, rubs, systolic murmur - GI/Abdominal GI/Abdominal exam: Present: normal bowel sounds, soft, no peritoneal signs. Absent: distended, tenderness - Extremities Exam Extremities exam: Present: normal capillary refill, warm, radial pulses palpable and symmetrical. Absent: calf tenderness, cyanotic, pedal edema, tenderness - Neurological Exam Neurological exam: Present: alert, oriented X3, no focal deficits. Absent: altered, strengths equal and symetr throughout, facial droop, speech deficit - Skin Skin exam: Present: dry, intact, normal color, warm. Absent: rash
--- NOTE | 2016-11-17 13:48 | Physician Discharge Referral ---
ExtendedCare Referral Info Transfer To: [facility] Provider in Charge after Transfer: PCP Institutional Level of Care: Intermediate - Diagnosis (1) Right leg pain Priority: Primary Status: Acute (2) Inability to ambulate due to right hip Priority: Secondary Status: Acute (3) Transient right leg weakness Priority: Secondary Status: Acute (4) Lumbar stenosis Priority: Secondary Status: Chronic (5) Right hip pain Priority: Secondary Status: Acute (6) Obesity (BMI 30.0-34.9) Priority: Secondary Status: Chronic (7) DVT prophylaxis Priority: Secondary Status: Acute Prognosis: Fair Aware of Diagnosis: Patient Aware of Prognosis: Patient - Transfer Medications Prescriptions: Acetaminophen w/Cod 300-30 mg [Tylenol w/Codeine #3] 1 each PO Q6HR PRN #8 tab PRN Reason: Pain Home Medications: ALPRAZolam [Xanax 0.5 MG Tablet] 0.5 mg PO BID 11/02/16 [History] Amiloride/Hydrochlorothiazide [Amiloride HCl-Hctz 5-50 mg Tab] 1 tab PO DAILY [History] Citalopram Hydrobromide [Celexa] 40 mg PO DAILY 11/02/16 [History] Gabapentin [Neurontin] 600 mg PO BID 11/02/16 [History] Metformin HCl [Glucophage] 1,000 mg PO DAILY 11/02/16 [History] Multivitamin [Multi-Day Vitamins] 1 tab PO DAILY 11/02/16 [History] Pioglitazone HCl [Actos] 30 mg PO DAILY 11/02/16 [History] Rosuvastatin Calcium [Crestor] 10 mg PO DAILY 11/02/16 [History] Lisinopril [Zestril] 10 mg PO DAILY #30 tab 11/05/16 [Rx] hydrALAZINE [HydrALAZINE] 25 mg PO Q6HR #120 tab 11/05/16 [Rx] Acetaminophen w/Cod 300-30 mg [Tylenol w/Codeine #3] 1 each PO Q6HR PRN #8 tab 11/17/16 [Rx] Allergies/Adverse Reactions: 3 Allergy/AdvReac Type Severity Reaction Status Date / Time Sulfa (Sulfonamide AdvReac See Verified 11/11/16 02:53 Antibiotics) Comments - Respiratory Orders Smoking Cessation: Smoking cessation has been advised. For more information, call the [place] Tobacco Quit Line at 9-014-RXTB-NOW. - Lab Orders Lab Orders: CBC, U/A, CXR yearly - Ancillary Orders May use pressure relief devices daily prn, May go on TOAN w/family/respon libertarian w /meds at nurse discretion PRN, May consult with Dentist, Medical Physicist, Staffing And Scheduling Coordinator PRN - Advance Directives Code Status: Full Code CERTIFICATION: I certify that the transfer of the above named patient to an Extended Care Facility is necessary for the continuing treatment of the diagnosis listed. The above information is true and accurate reflection of patient's current condition. Confidential - Redisclosure prohibited without a patient's written consent.
--- NOTE | 2016-11-17 14:34 | Spinal Consult Note ---
Date of Encounter: 11/17/16 Time of Encounter: 07:30 Assessment and Plan (1) Spondylolisthesis at L4-L5 level Current Visit: Yes Status: Chronic She is lying comfortably in bed in no acute distress. Afebrile vital signs stable. She has unilateral weakness in leg extension which is 4 on a motor scale. Her hips move symmetrically. She has no clonus. She has no pathologic reflexes. She fires all upper extremity motor groups with good strength. She has a negative Jamey sign. MRI of the lumbar spine reveals multilevel degenerative changes. There is a grade 1 spondylolisthesis at L4-L5. There is severe bilateral neural foraminal stenosis at L3-4 and L4-5. Impression: 1) degenerative spondylolisthesis L4-L5 2) severe lumbar foraminal stenosis L3-L5 3) focal motor deficit Plan: I had a long discussion with the patient and daughter about her findings. She has the option of nonoperative treatment with rehabilitation for core and lower extremity strengthening and possible outpatient lumbar epidural steroids. I would also like to set up an EMG of the involved lower extremity to assess for nerve damage and/or lumbar radiculopathy or other etiology for her leg weakness. She will follow-up in my office in 2 weeks where we will reassess her clinical state. If she has continued weakness and symptoms despite treatment she would be an excellent candidate for lumbar decompression and fusion which would be performed on an elective basis. The patient and daughter are agreeable to the plan. (2) Lumbar foraminal stenosis Current Visit: Yes Status: Chronic History of Present Illness Chief complaint: Back and leg pain, weakness in left leg HPI: Ms. Barclay is a 81 year old female With recent onset of back and left lower extremity radicular symptoms over the past week as well as weakness in her left leg which interfered with ambulation. She was evaluated in the emergency department due to this functional decline in admitted for management. She has seen Dr. Starr in the past for interventional treatments. We are asked to see regarding potential surgical interventions or additional recommendations. She denies any bowel bladder symptomatology, fevers or chills. Past Med Surg Social Fam HX - Past Medical History Medical history: diabetes, hyperlipidemia, hypertension, other (Lumbar stenosis) Psychiatric history: anxiety, depression - Past Surgical History Surgical History: cholecystectomy, hysterectomy - Social History Smoking Status: Never smoker Smokeless Tobacco Status: No Alcohol use: none Drug use: none - Family History Mother Hx Family Cardiac Disorders: Yes Hx Family Respiratory Disorders: No Hx Family Cancer: No Hx Family GI Disorders: No Hx Family Genitourinary Disorders: No Hx Family Endocrine Disorder: Yes (diabetes) Hx Family Musculoskeletal Disorders: No Hx Family Neuromuscular Disorders: No Hx Family Neurologic Disorders: No Hx Family HEENT Disorders: No Hx Family Autoimmune Disorders: No Hx Family Reproductive Disorders: No Hx Family Psychosocial Disorders: No Hx Family Medical Disorders: No Medications and Allergies ALPRAZolam [Xanax 0.5 MG Tablet] 0.5 mg PO BID 11/02/16 [History] Amiloride/Hydrochlorothiazide [Amiloride HCl-Hctz 5-50 mg Tab] 1 tab PO DAILY [History] Citalopram Hydrobromide [Celexa] 40 mg PO DAILY 11/02/16 [History] Gabapentin [Neurontin] 600 mg PO BID 11/02/16 [History] Metformin HCl [Glucophage] 1,000 mg PO DAILY 11/02/16 [History] Multivitamin [Multi-Day Vitamins] 1 tab PO DAILY 11/02/16 [History] Pioglitazone HCl [Actos] 30 mg PO DAILY 11/02/16 [History] Rosuvastatin Calcium [Crestor] 10 mg PO DAILY 11/02/16 [History] Lisinopril [Zestril] 10 mg PO DAILY #30 tab 11/05/16 [Rx] hydrALAZINE [HydrALAZINE] 25 mg PO Q6HR #120 tab 11/05/16 [Rx] Acetaminophen w/Cod 300-30 mg [Tylenol w/Codeine #3] 1 each PO Q6HR PRN #8 tab 11/17/16 [Rx] 3 Allergy/AdvReac Type Severity Reaction Status Date / Time Sulfa (Sulfonamide AdvReac See Verified 11/11/16 02:53 Antibiotics) Comments Results - Labs Result Diagrams: 11/14/16 14:37 11/14/16 14:37 Labs: Abnormal lab results RBC 3.81 M/mcL (3.82-4.97) L 11/14/16 14:37 Sodium 135 mEq/L (136-145) L 11/14/16 14:37 Potassium 4.9 mEq/L (3.5-4.5) H 11/14/16 14:37 BUN 21 mg/dL (7-20) H 11/14/16 14:37 Est GFR (Non-Af Amer) 59 (> 60) L 11/14/16 14:37 POC Glucose 122 (58-89) H 11/16/16 23:41 Hemoglobin A1c 6.2 % (-5.6) H 11/15/16 08:42 Creatine Kinase 219 Units/L (29-168) H 11/15/16 08:42 Ur Leukocyte Esterase Small (Negative) H 11/14/16 15:13 Urine Microscopic RBC 5-15 per hpf (0-3) H 11/14/16 15:13 Urine Microscopic WBC 5-15 per hpf (0-3) H 11/14/16 15:13 Ur Squamous Epith Cells Many per lpf (None-Few) H 11/14/16 15:13 All other labs normal. Consult Discharge Plan - Plan Instructions: Urinary Tract Infection in Women (DC), Chronic Hypertension (DC) Additional Instructions: EMG to be scheduled outpatient at neuro appointement. Pt will follow up with Dr. Meier after EMG. Referrals: Justin Meier Jr, MD [Partnered Physician] - 12/15/16 11:00 am Nieves Stinson CNP [Advanced Practice Nurse] - 11/21/16 10:00 am Babita Fish MD [Partnered Physician] - 12/13/16 11:45 am Prescriptions: Acetaminophen w/Cod 300-30 mg [Tylenol w/Codeine #3] 1 each PO Q6HR PRN #8 tab PRN Reason: Pain
[2016-11-17 16:06] VITALS: BP 145/66
== END 2016-11-17 19:47 ==
LOC: 3BNU 13:51 → EMEROO 13:51 → 3BNU 21:30
PROVIDERS: ADMIT Internal Medicine; ATTEND Registered Nurse

== ENCOUNTER 2017-01-16 19:52 | Observation (INO) ==
--- NOTE | 2017-01-16 20:14 | Emergency Department Note ---
Disposition Clinical Impression: Chest pain Qualifiers: Chest pain type: unspecified Qualified Code(s): R07.9 - Chest pain, unspecified Disposition: Admitted As Inpatient Condition: Fair Time of Disposition: 22:13 General Adult HPI - General Chief complaint: ED Chest Pain Stated complaint: Chest Pain Time Seen by Provider: 01/16/17 19:53 Source: patient Mode of arrival: EMS Limitations: no limitations Nursing Notes Reviewed: Yes Vital Signs Reviewed: Yes - History of Present Illness HPI Narrative: Patient is an 81-year-old female with past medical history of hypertension, high cholesterol, and diabetes presenting to the emergency department 10 hours of chest pain. She describes the chest pain is left-sided and placed pressure/ aching-like. Pain is a 6/10 on pain scale at this time. She denies any associated nausea, vomiting, diaphoresis, shortness of breath or radiation of the pain. States she has no cardiac history, however she has not had a stress test or cardiac workup done in the last 4 years. - Related Data Home Medications Medication Instructions Recorded Confirmed ALPRAZolam [Xanax 0.5 MG Tablet] 0.5 mg PO BID 11/02/16 01/16/17 Amiloride/Hydrochlorothiazide 1 tab PO DAILY 11/02/16 01/16/17 [Amiloride HCl-Hctz 5-50 mg Tab] Citalopram Hydrobromide [Celexa] 40 mg PO HS 11/02/16 01/16/17 Gabapentin [Neurontin] 600 mg PO BID 11/02/16 01/16/17 Metformin HCl [Glucophage] 1,000 mg PO DAILY 11/02/16 01/16/17 Multivitamin [Multi-Day Vitamins] 1 tab PO DAILY 11/02/16 01/16/17 Pioglitazone HCl [Actos] 30 mg PO DAILY 11/02/16 01/16/17 Rosuvastatin Calcium [Crestor] 10 mg PO HS 11/02/16 01/16/17 hydrALAZINE [HydrALAZINE] 25 mg PO TID 01/16/17 01/16/17 Previous Rx's Medication Instructions Recorded Lisinopril [Zestril] 10 mg PO DAILY #30 tab 11/05/16 Acetaminophen w/Cod 300-30 mg 1 each PO Q6HR PRN #8 tab 11/17/16 [Tylenol w/Codeine #3] Allergies Allergy/AdvReac Type Severity Reaction Status Date / Time Sulfa (Sulfonamide AdvReac See Verified 11/11/16 02:53 Antibiotics) Comments All systems ED: reviewed and negative except as stated. Constitutional: Denies: fever, chills Cardiovascular: Reports: chest pain. Denies: palpitations, dyspnea on exertion Respiratory: Denies: cough, dyspnea Gastrointestinal: Denies: abdominal pain, nausea, vomiting Genitourinary: Denies: urgency, dysuria Musculoskeletal: Denies: back pain, neck pain Integumentary: Denies: rash Neurological: Denies: headache, weakness Past Medical History - Past Medical History Attestation: Yes The following information was validated with the patient. Medical history: Reports: diabetes, hyperlipidemia, hypertension, other (Lumbar stenosis) Surgical history: Reports: cholecystectomy, hysterectomy Psychiatric history: Reports: anxiety, depression - Social History Smoking Status: Never smoker Smokeless Tobacco Status: No Alcohol use: Reports: none Drug use: Reports: none Physical Exam CONSTITUTIONAL: Alert and oriented X3, well-nourished, well appearing, in no apparent distress HEAD: Normocephalic; atraumatic. EYES: PERRL, no scleral icterus. NOSE: The nose is normal in appearance without rhinorrhea RESP: Normal chest excursion with respiration; breath sounds clear and equal bilaterally; no wheezes, rhonchi, or rales CARD: Regular rhythm, without murmurs, rub or gallop ABD: Non-distended; non-tender, soft,without rigidity, rebound or guarding SKIN: Normal for age and race; warm and dry; no apparent lesions Course Course Narrative: Patient is a 81-year-old female with no cardiac history presenting to his primary chest pain has been going on since this afternoon. [facility] ordered labs on the patient including CBC, BMP, troponin. I also ordered chest x-ray patient EKG was done and it showed sinus bradycardia at a rate of 55 beats per minutes with no signs of ischemia when compared to EKG done at 19:21 squad it is unchanged. - Reevaluation(s) Reevaluation #1: Patient had improvement in chest pain with nitro from a 6/10 to a 3/10 after 2 doses. Her BP improved to 140/90. Plan is to call a hospitalist for admission. Time: 21:24 Reevaluation #2: Discussed patient's case with the hospitalist. Hospitalist Dr. Perez agrees to admit the patient. Time: 22:13 Vital Signs Temperature 97.6 F 01/16/17 20:04 Pulse Rate 55 01/16/17 20:04 Respiratory Rate 16 01/16/17 20:04 Blood Pressure 176/71 01/16/17 20:04 O2 Sat by Pulse Oximetry 96 01/16/17 20:04 Temperature 97.6 F 01/16/17 20:04 Pulse Rate 77 01/16/17 21:14 Respiratory Rate 16 01/16/17 22:20 Blood Pressure 136/52 01/16/17 22:20 O2 Sat by Pulse Oximetry 94 01/16/17 21:14 Oxygen Delivery Oxygen Delivery Room Air Medical Decision Making - Medical Records Medical records reviewed: Yes I reviewed the patient's medical records. - Lab Data Lab results reviewed: Yes I reviewed the patient's lab results. Result diagrams: 01/16/17 20:22 01/16/17 20:22 Lab Results 01/16/17 01/16/17 01/16/17 Range/Units 20:22 20:22 20:22 WBC 8.7 (4.3-11.1) K/mcL RBC 3.87 (3.82-4.97) M/mcL Hgb 11.9 (11.5-15.4) g/dL Hct 37.6 (35.3-44.9) % MCV 97.2 (83.0-100.0) fL MCH 30.7 (28.0-33.3) pg MCHC 31.6 (31.6-35.5) g/dL RDW 11.9 (11.5-14.5) % Plt Count 178 (140-400) K/mcL MPV 11.4 (9.4-12.4) fL Immature Gran % 0.3 (0-4) % Seg Neutrophils % 59.4 % Lymphocytes % 30.4 % Monocytes % 8.3 % Eosinophils % 1.3 % Basophils % 0.3 % Neutrophils # 5.1 (1.6-8.9) K/mcL Lymphocytes # 2.6 (0.6-4.6) K/mcL Monocytes # 0.7 (0.0-1.3) K/mcL Eosinophils # 0.1 (0.0-0.6) K/mcL Basophils # 0.0 (0.0-0.2) K/mcL PT 10.0 (9.4-12.1) Seconds INR 0.9 APTT 30.3 (26.0-36.0) Seconds D-Dimer 676 H (0-500) ng/mLFEU Sodium 139 (136-145) mEq/L Potassium 4.3 (3.5-4.5) mEq/L Chloride 106 (98-109) mEq/L Carbon Dioxide 23 (19-29) mEq/L BUN 14 (7-20) mg/dL Creatinine 0.91 (0.57-1.11) mg/dL Est GFR ( Amer) > 60 (> 60) Est GFR (Non-Af Amer) 59 L (> 60) BUN/Creatinine Ratio 15 (6-26) Glucose 96 (70-99) mg/dL Calculated Osmolality 288 (280-300) Calcium 9.9 (8.6-10.8) mg/dL Troponin I (0-0.03) ng/mL 01/16/17 Range/Units 20:22 WBC (4.3-11.1) K/mcL RBC (3.82-4.97) M/mcL Hgb (11.5-15.4) g/dL Hct (35.3-44.9) % MCV (83.0-100.0) fL MCH (28.0-33.3) pg MCHC (31.6-35.5) g/dL RDW (11.5-14.5) % Plt Count (140-400) K/mcL MPV (9.4-12.4) fL Immature Gran % (0-4) % Seg Neutrophils % % Lymphocytes % % Monocytes % % Eosinophils % % Basophils % % Neutrophils # (1.6-8.9) K/mcL Lymphocytes # (0.6-4.6) K/mcL Monocytes # (0.0-1.3) K/mcL Eosinophils # (0.0-0.6) K/mcL Basophils # (0.0-0.2) K/mcL PT (9.4-12.1) Seconds INR APTT (26.0-36.0) Seconds D-Dimer (0-500) ng/mLFEU Sodium (136-145) mEq/L Potassium (3.5-4.5) mEq/L Chloride (98-109) mEq/L Carbon Dioxide (19-29) mEq/L BUN (7-20) mg/dL Creatinine (0.57-1.11) mg/dL Est GFR ( Amer) (> 60) Est GFR (Non-Af Amer) (> 60) BUN/Creatinine Ratio (6-26) Glucose (70-99) mg/dL Calculated Osmolality (280-300) Calcium (8.6-10.8) mg/dL Troponin I 0.00 (0-0.03) ng/mL - Radiology Data Radiology results reviewed: Yes I reviewed the patient's radiology results. Chest X-Ray 01/16/17 19:54 IMPRESSION: No significant change compared to prior study. No acute cardiopulmonary findings. D/ / 01/16/2017 20:18:38 Marquise Foster MD / primo Interpreting Provider: Marquise Foster MD - EKG Data EKG #1 EKG attestation: Yes I reviewed and interpreted this EKG. EKG results narrative: Patient's EKG done at 19:59 interpreted by me shows sinus bradycardia with a normal access. MA is 205, QRS is 98, QT is 425 and QTc is 414. Patient has good R-wave progression. Normal axis. No signs of ST elevation, depression or Q waves. This is unchanged from her EKG done 19:21 today. Attestation Statement - Attestation Attestation: I examined this patient and my medical decision-making was reviewed with the Resident Physician. I agree with the documented findings, disposition and treatment plan as described except to the extent set forth below. Findings consistent with chest pain. No recent provocative testing. Plan to admit for further evaluation. Aspirin and troponin I were given. Age adjusted d-dimer was negative.
[2017-01-16 20:27] LABS: Basophils % 0.3 %; Eosinophils # 0.1 K/mcL (0.0-0.6); Eosinophils % 1.3 %; Hematocrit 37.6 % (35.3-44.9); Hemoglobin 11.9 g/dL (11.5-15.4); Immature Granulocytes % 0.3 % (0-4); Lymphocytes # 2.6 K/mcL (0.6-4.6); Lymphocytes % 30.4 %; Mean Corpuscular HGB Conc 31.6 g/dL (31.6-35.5); Mean Corpuscular Hemoglobin 30.7 pg (28.0-33.3); Mean Corpuscular Volume 97.2 fL (83.0-100.0); Mean Platelet Volume 11.4 fL (9.4-12.4); Monocytes # 0.7 K/mcL (0.0-1.3); Monocytes % 8.3 %; Neutrophils # 5.1 K/mcL (1.6-8.9); Platelet Count 178 K/mcL (140-400); Red Blood Count 3.87 M/mcL (3.82-4.97); Red Cell Distribution Width 11.9 % (11.5-14.5); Segmented Neutrophils % 59.4 %
[2017-01-16 20:34] LABS: INR 0.9
[2017-01-16 20:36] LABS: Activated Partial Thrombo Time 30.3 Seconds (26.0-36.0)
[2017-01-16 20:39] LABS: BUN/Creatinine Ratio 15 (6-26); Blood Urea Nitrogen 14 mg/dL (7-20); Calcium 9.9 mg/dL (8.6-10.8); Carbon Dioxide 23 mEq/L (19-29); Chloride 106 mEq/L (98-109); Glucose 96 mg/dL (70-99); Osmolality,Calculated 288 (280-300); Potassium 4.3 mEq/L (3.5-4.5); Sodium 139 mEq/L (136-145); eGFR For African Americans > 60 (> 60); eGFR For Non-African Americans 59 (> 60)
[2017-01-16] MEDS ORDERED: MetroNIDAZOLE 500 MG/100 ML 500 MG/100 ML BAG IVPB ONE (20:40)
[2017-01-16] MEDS ORDERED: Aspirin 81 MG TAB.CHEW PO ONE (20:54)
[2017-01-16] MEDS: Nitroglycerin 0.4 MG TAB.SUBL SL PRN ×2 (21:04→21:10)
[2017-01-16] MEDS ORDERED: *HR* Acetaminophen w/Cod 300-30 mg 1 TAB TABLET PO PRN (22:48)
[2017-01-16] MEDS ORDERED: *HR* Morphine 2 MG/ML SYRINGE IVP PRN (22:49)
[2017-01-16] MEDS ORDERED: *HR* Dextrose 50 % in Water (Syg) 50 ML SYRINGE IVP PRN (22:49)
[2017-01-16] MEDS ORDERED: Naloxone 0.4 MG/ML INJ IVP PRN (22:49)
[2017-01-16] MEDS ORDERED: Dextrose Gel 15 GM PO PRN ×2 (22:49)
[2017-01-16] MEDS ORDERED: D5% in Water 1,000 ML IVC PRN (22:49)
--- NOTE | 2017-01-16 22:55 | Internal Med History&Physical ---
<Souleymane Quinones - Last Filed: 01/16/17 22:53> Date of Encounter: 01/16/17 Time of Encounter: 22:53 Assessment and Plan (1) Chest pain Current visit: Yes Status: Acute Continues to have mild left-sided chest pressure rated 2/10. Was initially hypertensive upon arrival with systolic blood pressure in the 170s. Blood pressure is now stabilized with systolic blood pressures in the 140s after 2 doses of sublingual nitroglycerin. No prior cardiac history. Last cardiac workup was approximately 4 years ago. She admits that she has recently been having difficulty controlling her blood pressure and her medication has been adjusted. Her primary care provider. I believe that the chest pain is related to her hypertension Seeing as how her chest pain improved with better blood pressure control. We will continue to rule out cardiac cause of chest pain Echocardiogram Stress test in the morning Serial troponins Continuous telemetry, continuous SPO2 Continue aspirin, Crestor, hydralazine, lisinopril, amiloride/HCTZ Sublingual nitroglycerin and chest pain returns, morphine 2 mg IV push for chest pain Consider cardio consult in the morning depending on stress test results Qualifiers: Chest pain type: unspecified Qualified Code(s): R07.9 - Chest pain, unspecified (2) Bradycardia Current visit: Yes Status: Acute Chronic bradycardia. Has been primarily symptomatic. Continuous telemetry (3) HLD (hyperlipidemia) Current visit: Yes Status: Acute Continue Crestor check lipid panel in the morning Qualifiers: Hyperlipidemia type: unspecified Qualified Code(s): E78.5 - Hyperlipidemia , unspecified (4) HTN (hypertension) Current visit: Yes Status: Acute History of hypertension. Was hypertensive upon arrival. Has improved this time. See plan above Qualifiers: Hypertension type: essential hypertension Qualified Code(s): I10 - Essential (primary) hypertension (5) Diabetes mellitus Current visit: Yes Status: Acute Type 2 diabetes without long-term insulin use. On oral hypoglycemic agents. Hold oral hypoglycemic agents while inpatient and start sliding scale insulin coverage with before meals and at bedtime Accu-Cheks and diabetic diet Qualifiers: Diabetes mellitus type: type 2 Diabetes mellitus complication status: without complication Diabetes mellitus senior care insulin use: without sports lawyer use Qualified Code(s): E11.9 - Type 2 diabetes mellitus without complications (6) DVT prophylaxis Current visit: Yes Status: Acute Heparin 5000 units subcutaneous twice a day Internal Medicine - H&P: HPI Chief complaint: Chest pain rule out Admitted From: Home Plans for Post Hospital Care: Home History of present illness: Ms. Barclay is a 81 year old female with a PMH of HTN, HLD, diabetes. She presents to [facility] today with left-sided chest pain 6/10 that is described as a dull pressure without radiation and without shortness of breath. She states that the chest pain began around 10 AM this morning. She has no prior cardiac history and no family history. Last cardiac workup was approximately 4 years ago. While in the ED she received 2 sublingual doses of nitroglycerin and chest pain improved to 2/10. Troponin thus far unremarkable at 0.00. Past Med Surg Social Fam HX - Past Medical History Medical history: diabetes, hyperlipidemia, hypertension, other (Lumbar stenosis) Psychiatric history: anxiety, depression - Past Surgical History Surgical History: cholecystectomy, hysterectomy - Social History Smoking Status: Never smoker Smokeless Tobacco Status: No Alcohol use: none Drug use: none - Family History Mother Hx Family Cardiac Disorders: Yes Hx Family Respiratory Disorders: No Hx Family Cancer: No Hx Family GI Disorders: No Hx Family Endocrine Disorder: Yes (diabetes) Hx Family Neuromuscular Disorders: No Hx Family Neurologic Disorders: No Hx Family HEENT Disorders: No Hx Family Autoimmune Disorders: No Internal Medicine - H&P: Meds ALPRAZolam [Xanax 0.5 MG Tablet] 0.5 mg PO BID 11/02/16 [History] Amiloride/Hydrochlorothiazide [Amiloride HCl-Hctz 5-50 mg Tab] 1 tab PO DAILY [History] Citalopram Hydrobromide [Celexa] 40 mg PO HS 11/02/16 [History] Gabapentin [Neurontin] 600 mg PO BID 11/02/16 [History] Metformin HCl [Glucophage] 1,000 mg PO DAILY 11/02/16 [History] Multivitamin [Multi-Day Vitamins] 1 tab PO DAILY 11/02/16 [History] Pioglitazone HCl [Actos] 30 mg PO DAILY 11/02/16 [History] Rosuvastatin Calcium [Crestor] 10 mg PO HS 11/02/16 [History] Lisinopril [Zestril] 10 mg PO DAILY #30 tab 11/05/16 [Rx] Acetaminophen w/Cod 300-30 mg [Tylenol w/Codeine #3] 1 each PO Q6HR PRN #8 tab 11/17/16 [Rx] hydrALAZINE [HydrALAZINE] 25 mg PO TID 01/16/17 [History] 3 Allergy/AdvReac Type Severity Reaction Status Date / Time Sulfa (Sulfonamide AdvReac See Verified 11/11/16 02:53 Antibiotics) Comments All Systems PM: A 10-system review of systems was performed and is negative for pertinent findings except as documented above in the HPI. - Constitutional Constitutional: no chills, no fever(s), no night sweats - EENT Eyes: no change in vision, no discharge, no pain, no photophobia Ears: no ear discharge, no ear pain, no tinnitus Nose, mouth and throat: no dysphagia, no nasal discharge, no neck pain, no sore throat - Cardiovascular Cardiovascular ROS IM: as per HPI, chest pain, no diaphoresis, no dyspnea, no dyspnea on exertion, no edema, no irregular heart rhythm, no lightheadedness, no orthopnea, no palpitations, no syncope - Respiratory Respiratory: no cough, no dyspnea, no hemoptysis, no dyspnea on exertion, no wheezing, no pain on inspiration, no chest congestion, no excessive phlegm production - Gastrointestinal Gastrointestinal: no abdominal pain, no diarrhea, no hematemesis, no hematochezia, no melena, no nausea, no vomiting - Genitourinary Genitourinary: no change in urinary stream, no dysuria, no flank pain, no hematuria - Musculoskeletal Musculoskeletal ROS IM: no numbness, no tingling - Integumentary Integumentary IM: no rash, no unusual bruising - Neurological Neurological ROS: no confusion, no convulsions, no focal weakness, no numbness, no tingling, no tremor(s) - Hematologic/Lymphatic Hematologic/Lymphatic: no easy bruising - Constitutional Vitals: Temp Pulse Resp BP Pulse Ox 97.6 F 77 16 136/52 94 01/16/17 20:04 01/16/17 21:14 01/16/17 22:20 01/16/17 22:20 01/16/17 21:14 General appearance: Present: cooperative, A&O X 3, no acute distress, answers questions appropriately - Head Head exam: Present: atraumatic, normocephalic - Eye Eye exam: Present: PERRL, conjuntiva pink, sclera anicteric Pupils: Present: PERRL - Neck Neck exam general surgery: Present: supple, trachea midline. Absent: lymphadenopathy - Respiratory Respiratory exam: Present: CTAB. Absent: accessory muscle use, rales, rhonchi, wheezes - Cardiovascular Cardiovascular exam: Present: RRR, +S1, +S2. Absent: diastolic murmur, gallop, rubs, systolic murmur - GI/Abdominal GI/Abdominal exam: Present: normal bowel sounds, soft, no peritoneal signs. Absent: distended, tenderness - Extremities Exam Extremities exam: Present: warm, radial pulses palpable and symmetrical. Absent : calf tenderness, cyanotic, pedal edema - Neurological Exam Neurological exam: Absent: pronater drift, facial droop, speech deficit - Skin Skin exam: Present: dry, intact Internal Med - H&P Results - Labs CBC & Chem 7: 01/16/17 20:22 01/16/17 20:22 - EKG Data -: EKG Interpreted by Myself EKG shows normal: sinus rhythm Rate: bradycardia - EKG Data Prior EKG available for review: yes When compared to previous EKG: there is no significant change Interpretation IM: normal EKG EKG comments: 01/16/17 22:56 Sinus bradycardia - Diagnostic Studies Chest x-ray Status: image reviewed by me Additional comments: No acute pulmonary process <Salvatore Perez - Last Filed: 01/17/17 00:27> Date of Encounter: 01/17/17 Internal Medicine - H&P: HPI History of present illness: Ms. Barclay is a 81 year old female All Systems PM: A 10-system review of systems was performed and is negative for pertinent findings except as documented above in the HPI. - Constitutional Vitals: Temp Pulse Resp BP Pulse Ox 98.5 F 60 16 138/55 95 01/16/17 22:57 01/16/17 22:57 01/16/17 22:57 01/16/17 22:57 01/16/17 22:57 Internal Med - H&P Results - Labs CBC & Chem 7: 01/16/17 20:22 01/16/17 20:22 - Attending Attestation I have seen and examined this patient on 01/16 and discussed plan of care with patient and her family at the bedside, as well [facility] Souleymane Atypical chest pain, work up negative so far. Vital stavle, not hypoxic, cycle trops, Agree with stress test and ECHO Rest of details as in [employer] documentation.
[2017-01-16] MEDS: Insulin LISPRO 300 UNITS/3 ML VIAL SQ SCH (23:15)
[2017-01-16] MEDS: ALPRAZolam 0.5 MG TABLET PO SCH (23:26)
[2017-01-17 01:55] LABS: Basophils % 0.4 %; Eosinophils # 0.1 K/mcL (0.0-0.6); Eosinophils % 1.2 %; Hematocrit 33.6 % (35.3-44.9); Immature Granulocytes % 0.3 % (0-4); Lymphocytes # 2.8 K/mcL (0.6-4.6); Lymphocytes % 35.6 %; Mean Corpuscular HGB Conc 32.7 g/dL (31.6-35.5); Mean Corpuscular Hemoglobin 31.7 pg (28.0-33.3); Mean Corpuscular Volume 96.8 fL (83.0-100.0); Mean Platelet Volume 11.3 fL (9.4-12.4); Monocytes # 0.7 K/mcL (0.0-1.3); Monocytes % 9.4 %; Neutrophils # 4.1 K/mcL (1.6-8.9); Platelet Count 176 K/mcL (140-400); Red Blood Count 3.47 M/mcL (3.82-4.97); Red Cell Distribution Width 12.1 % (11.5-14.5); Segmented Neutrophils % 53.1 %
[2017-01-17 02:08] LABS: Alanine Aminotransferase 12 Units/L (0-55); Albumin 3.2 g/dL (3.5-5.0); Alkaline Phosphatase 86 Units/L (38-126); Aspartate Amino Transferase 19 Units/L (5-34); BUN/Creatinine Ratio 15 (6-26); Bilirubin,Total 0.8 mg/dL (0.2-1.2); Blood Urea Nitrogen 13 mg/dL (7-20); Calcium 9.6 mg/dL (8.6-10.8); Carbon Dioxide 23 mEq/L (19-29); Chloride 108 mEq/L (98-109); Chol/HDL Ratio 2.5 (0-4.9); Cholesterol 125 mg/dL (< 200); Globulin 3.2 g/dL (2.4-3.5); Glucose 103 mg/dL (70-99); HDL Cholesterol 51 mg/dL (40-59); LDL Cholesterol,Calculated 46 mg/dL (0-99); Osmolality,Calculated 284 (280-300); Potassium 4.5 mEq/L (3.5-4.5); Sodium 137 mEq/L (136-145); Total Protein 6.4 g/dL (6.0-8.3); Triglycerides 139 mg/dL (< 150); eGFR For African Americans > 60 (> 60); eGFR For Non-African Americans > 60 (> 60)
[2017-01-17] MEDS: *HR* Heparin 5,000 UNIT/ML VIAL SQ SCH ×2 (05:40→17:01)
[2017-01-17] MEDS ORDERED: Regadenoson 0.4 MG/5 ML SYRINGE IVP ONE (06:03)
[2017-01-17] MEDS: hydrALAZINE 25 MG TABLET PO SCH ×3 (09:00→19:58)
[2017-01-17] MEDS: Insulin LISPRO 300 UNITS/3 ML VIAL SQ SCH ×4 (09:38→19:50)
[2017-01-17] MEDS: ALPRAZolam 0.5 MG TABLET PO SCH ×2 (12:26→19:58)
[2017-01-17] MEDS: Gabapentin 300 MG CAPSULE PO SCH ×2 (12:28→19:58)
--- NOTE | 2017-01-17 13:11 | Electrocardiograph Report ---
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
[2017-01-17] MEDS: aMILoride 5 MG TABLET PO SCH (13:34)
[2017-01-17] MEDS: hydroCHLOROthiazide 25 MG TABLET PO SCH (13:38)
--- NOTE | 2017-01-17 18:53 | Internal Med Progress Note ---
Date of Encounter: 01/17/17 Time of Encounter: 15:00 - Assessment and plan (1) HTN (hypertension) Current Visit: Yes Status: Acute Assessment and plan: Continue with hydralazine, lisinopril, amiloride/HCTZ. Blood pressure well controlled on this regimen. Qualifiers: Hypertension type: essential hypertension Qualified Code(s): I10 - Essential (primary) hypertension (2) Diabetes mellitus Current Visit: Yes Status: Acute Assessment and plan: INSULIN SLIDING SCALE. DIABETIC DIET. Qualifiers: Diabetes mellitus type: type 2 Diabetes mellitus complication status: without complication Diabetes mellitus stunt driver insulin use: without correction use Qualified Code(s): E11.9 - Type 2 diabetes mellitus without complications (3) Obesity (BMI 30.0-34.9) Current Visit: No Status: Chronic Assessment and plan: Outpatient follow-up and weight loss regimen. (4) Chest pain Current Visit: Yes Status: Acute Assessment and plan: Concerning for cardiac origin of chest pain. Currently chest pain-free. Nuclear medicine attempted a stress test today but this could not be administered due to failure and her IV access. She will have a nuclear medicine stress test done tomorrow. We will follow up stress test and echocardiogram. Qualifiers: Chest pain type: unspecified Qualified Code(s): R07.9 - Chest pain, unspecified (5) HLD (hyperlipidemia) Current Visit: Yes Status: Acute Assessment and plan: Continue with Crestor. Qualifiers: Hyperlipidemia type: unspecified Qualified Code(s): E78.5 - Hyperlipidemia , unspecified - Subjective Interval history: Patient presents to the hospital with left-sided chest pain that started rest, graded at at 8/10 in intensity and eventually improved with nitroglycerin. Currently she is chest pain-free. - Constitutional Vitals: Temp Pulse Resp BP Pulse Ox 97.3 F L 73 20 145/72 93 01/17/17 15:21 01/17/17 15:21 01/17/17 15:21 01/17/17 15:21 01/17/17 15:21 General appearance: Present: cooperative, A&O X 3, no acute distress, answers questions appropriately - Respiratory Respiratory exam: Present: CTAB. Absent: accessory muscle use, rales, rhonchi, wheezes - Cardiovascular Cardiovascular exam: Present: RRR, +S1, +S2. Absent: diastolic murmur, gallop, rubs, systolic murmur - GI/Abdominal GI/Abdominal exam: Present: normal bowel sounds, soft, no peritoneal signs. Absent: distended, tenderness - Extremities Exam Extremities exam: Present: warm, radial pulses palpable and symmetrical. Absent : calf tenderness, cyanotic, pedal edema Internal Medicine: Result - Labs CBC & Chem 7: 01/17/17 01:49 01/17/17 01:49 Labs: Short CBC 01/17/17 Range/Units 01:49 WBC 7.8 (4.3-11.1) K/mcL Hgb 11.0 L (11.5-15.4) g/dL Hct 33.6 L (35.3-44.9) % Plt Count 176 (140-400) K/mcL Neutrophils # 4.1 (1.6-8.9) K/mcL BMP 01/17/17 01:49 Sodium 137 Potassium 4.5 Chloride 108 Carbon Dioxide 23 BUN 13 Creatinine 0.85 Glucose 103 H Calcium 9.6 Cardiac Enzymes 01/17/17 Range/Units 01:49 Troponin I 0.00 (0-0.03) ng/mL Liver Function 01/17/17 Range/Units 01:49 Total Bilirubin 0.8 (0.2-1.2) mg/dL AST 19 (5-34) Units/L ALT 12 (0-55) Units/L Alkaline Phosphatase 86 (38-126) Units/L Albumin 3.2 L (3.5-5.0) g/dL - ABG Interpretation ABG results: PT/INR, D-dimer PT 10.0 Seconds (9.4-12.1) 01/16/17 20:22 D-Dimer 676 ng/mLFEU (0-500) H 01/16/17 20:22 - Impressions Impressions Echocardiogram 01/17/17 22:49 Impressions: LVEF 70%. Normal LV chamber size and function. Mild concentric left ventricular hypertrophy. Mild left ventricular diastolic dysfunction. Normal right ventricular structure and function. No evidence of pulmonary hypertension. No significant valvular dysfunction. Left Ventricular Wall Motion: Rest Echo Findings All wall segments showed normal motion. Findings: Study Quality * Technically adequate exam. ECG Findings * Normal sinus rhythm. Left Ventricle * LVEF 70%. * Normal LV chamber size and function. * Mild concentric left ventricular hypertrophy. * Mild left ventricular diastolic dysfunction. Right Ventricle * Normal right ventricular structure and function. Left Atrium * Mildly dilated left atrium. Right Atrium * Normal right atrial size. Aortic Valve * Aortic valve not well visualized. * No aortic regurgitation. * No aortic stenosis. Mitral Valve * Mild mitral annular calcification. * No mitral stenosis. * No mitral regurgitation. Tricuspid Valve * Normal tricuspid valve structure and function. * Trace tricuspid regurgitation. * No evidence of pulmonary hypertension. Pulmonic Valve * Pulmonic valve not well visualized. * No pulmonic regurgitation. Aorta * Normally sized aortic root. Pericardium * The pericardium appears normal. IVC * Normal IVC dimensions and inspiratory collapse. Pulmonary Artery * Normal visualized portions of the main pulmonary artery. Consult Discharge Plan - Plan Referrals: Librado Long Jr, MD [Primary Care Provider] - 01/23/17 1:45 pm
[2017-01-18] MEDS: *HR* Heparin 5,000 UNIT/ML VIAL SQ SCH (05:50)
[2017-01-18] MEDS ORDERED: Regadenoson 0.4 MG/5 ML SYRINGE IVP ONE (06:31)
--- NOTE | 2017-01-18 09:14 | Discharge Summary ---
<Corey De La O - Last Filed: 01/18/17 11:51> Date of Encounter: 01/18/17 Time of Encounter: 09:10 - Discharge Diagnosis (1) Chest pain Priority: Primary Status: Acute Qualifiers: Chest pain type: unspecified Qualified Code(s): R07.9 - Chest pain, unspecified (2) Diabetes mellitus Priority: Secondary Status: Acute Qualifiers: Diabetes mellitus type: type 2 Diabetes mellitus complication status: without complication Diabetes mellitus terminal carman insulin use: without terminal carman use Qualified Code(s): E11.9 - Type 2 diabetes mellitus without complications (3) HLD (hyperlipidemia) Priority: Secondary Status: Acute Qualifiers: Hyperlipidemia type: unspecified Qualified Code(s): E78.5 - Hyperlipidemia , unspecified (4) HTN (hypertension) Priority: Secondary Status: Acute Qualifiers: Hypertension type: essential hypertension Qualified Code(s): I10 - Essential (primary) hypertension - Discharge Medications Prescriptions: Aspirin 81 mg PO DAILY #30 tab.chew Nitroglycerin 0.4 mg SL Q5-6MIN PRN #30 tab.subl PRN Reason: Chest Pain Home Medications: ALPRAZolam [Xanax 0.5 MG Tablet] 0.5 mg PO BID 11/02/16 [History] Amiloride/Hydrochlorothiazide [Amiloride HCl-Hctz 5-50 mg Tab] 1 tab PO DAILY [History] Citalopram Hydrobromide [Celexa] 40 mg PO HS 11/02/16 [History] Gabapentin [Neurontin] 600 mg PO BID 11/02/16 [History] Metformin HCl [Glucophage] 1,000 mg PO DAILY 11/02/16 [History] Multivitamin [Multi-Day Vitamins] 1 tab PO DAILY 11/02/16 [History] Pioglitazone HCl [Actos] 30 mg PO DAILY 11/02/16 [History] Rosuvastatin Calcium [Crestor] 10 mg PO HS 11/02/16 [History] Lisinopril [Zestril] 10 mg PO DAILY #30 tab 11/05/16 [Rx] Acetaminophen w/Cod 300-30 mg [Tylenol w/Codeine #3] 1 each PO Q6HR PRN #8 tab 11/17/16 [Rx] hydrALAZINE [HydrALAZINE] 25 mg PO TID 01/16/17 [History] Aspirin 81 mg PO DAILY #30 tab.chew 01/18/17 [Rx] Nitroglycerin 0.4 mg SL Q5-6MIN PRN #30 tab.subl 01/18/17 [Rx] Allergies/Adverse Reactions: 3 Allergy/AdvReac Type Severity Reaction Status Date / Time Sulfa (Sulfonamide AdvReac See Verified 11/11/16 02:53 Antibiotics) Comments Procedures/tests Complete & Pending: Procedures Performed prior 72 hours Category Date Time Status NM javier perf SPECT multi [NM] Routine Exams 01/18/17 05:00 Taken EV echocardiogram Routine Y 01/17/17 22:49 Completed SP pharm nuclear stress Routine Y 01/18/17 07:30 Completed Date of admission: 01/16/17 22:08 Primary care physician: Librado Long Jr, MD Consults: 01/17/17 09:23 Consult to Invasive Line Access Team [CONS] Routine Reason for Consult: STRESS TEST, DIFFICULT STICK Line Type: EPIV 01/17/17 11:29 Consult to Occupational Therapy [CONS] Routine Comment: Evaluate, develop and implement POC Reason for Consult: multiple falls Consult to Physical Therapy [CONS] Routine Comment: Evaluate, develop and implement POC Reason for Consult: multiple falls Discharging clinician: Juan Delaney Anticipated date of discharge: 01/18/17 - Patient Status Disposition: Home, Self-Care Condition: Fair Functional capacity at discharge: independent ambulation Overall status at discharge: patient is back to baseline - Discharge Instructions Instructions: Nitroglycerin (By mouth), Aspirin (By mouth) Follow Up With: Librado Long Jr, MD [Primary Care Provider] - 01/23/17 1:45 pm Additional Instructions: Please follow up with your PCP as scheduled. If chest pain persists despite Nitro tablets, please return to ED. - Diet and Activity Activity: increase activity as tolerated Diet: low fat, low cholesterol Hospital course: Ms. Barclay is a 81 year old female who presented to the ED with chest pain that was left sided and began int he morning. She has no history of OK or lung issues and did not complain of any shortness of breath. She states her chest pain was completely relieved with SL nitro while in the ED and her pain did not return. She was initially hypertensive in the 170s systolic but this was controlled quickly and her blood pressure remained stable throughout her stay. Her troponin were negative and she got a Lexican stress test which was eventually negative. She remained chest pain free this morning and had no other complaints and is ready to go home. She was evaluated by PT/OT and felt she did not require additional services. She will be going home on low dose ASA, SL nitro and instructed to continue her ACEi and Crestor as her LDL was in the 40s. Patient will not be started on beta ritesh in setting of borderline bradycardia. - Time Spent with Patient Total time spent providing and/or coordinating discharge services: Greater than 30 minutes - Constitutional Vitals: Temp Pulse Resp BP Pulse Ox 97.8 F 78 16 151/66 95 01/18/17 06:36 01/18/17 06:36 01/18/17 06:36 01/18/17 06:36 01/18/17 06:36 General appearance: Present: cooperative, no acute distress, answers questions appropriately - Head Head exam: Present: atraumatic, normocephalic - Eye Eye exam: Present: PERRL, conjuntiva pink, sclera anicteric - Neck Neck exam general surgery: Present: supple, trachea midline. Absent: lymphadenopathy - Respiratory Respiratory exam: Present: CTAB. Absent: accessory muscle use, rales, rhonchi, wheezes - Cardiovascular Cardiovascular exam: Present: RRR, +S1, +S2. Absent: diastolic murmur, gallop, rubs, systolic murmur - GI/Abdominal GI/Abdominal exam: Present: normal bowel sounds, soft, no peritoneal signs. Absent: distended, tenderness - Extremities Exam Extremities exam: Present: pedal edema (trace), warm, radial pulses palpable and symmetrical. Absent: calf tenderness, cyanotic - Neurological Exam Neurological exam: Present: alert, no focal deficits. Absent: facial droop, speech deficit - Skin Skin exam: Present: dry, intact <Juan Delaney - Last Filed: 01/18/17 18:37> Date of Encounter: 01/18/17 Procedures/tests Complete & Pending: Procedures Performed prior 72 hours Category Date Time Status NM javier perf SPECT multi [NM] Routine Exams 01/18/17 05:00 Taken EV echocardiogram Routine Y 01/17/17 22:49 Completed SP pharm nuclear stress Routine Y 01/18/17 07:30 Completed Date of admission: 01/16/17 22:08 Primary care physician: Librado Long Jr, MD Consults: 01/17/17 09:23 Consult to Invasive Line Access Team [CONS] Routine Reason for Consult: STRESS TEST, DIFFICULT STICK Line Type: EPIV 01/17/17 11:29 Consult to Occupational Therapy [CONS] Routine Comment: Evaluate, develop and implement POC Reason for Consult: multiple falls Consult to Physical Therapy [CONS] Routine Comment: Evaluate, develop and implement POC Reason for Consult: multiple falls Hospital course: Ms. Barclay is a 81 year old female - Time Spent with Patient Total time spent providing and/or coordinating discharge services: - Constitutional Vitals: Temp Pulse Resp BP Pulse Ox 97.9 F 71 16 96/55 96 01/18/17 11:00 01/18/17 11:00 01/18/17 11:00 01/18/17 11:00 01/18/17 11:00 - Attending Attestation I examined this patient and my medical decision-making was reviewed with the Resident Physician on 01/18/17. I agree with the documented findings, disposition and treatment plan as described except to the extent set forth below. Ms Barclay has been in observation for chest pain. This has resolved. Her stress test is negative. She is afebrile with stable vitals and ready for discharge home. Exam Alert. Comfortable Heart reg No wheeze Abd soft Plan D/C home today.
[2017-01-18] MEDS: Insulin LISPRO 300 UNITS/3 ML VIAL SQ SCH ×2 (09:45→12:31)
[2017-01-18] MEDS: Gabapentin 300 MG CAPSULE PO SCH (09:47)
[2017-01-18] MEDS: hydroCHLOROthiazide 25 MG TABLET PO SCH (09:47)
[2017-01-18] MEDS: aMILoride 5 MG TABLET PO SCH (09:48)
[2017-01-18] MEDS: ALPRAZolam 0.5 MG TABLET PO SCH (09:48)
[2017-01-18] MEDS: hydrALAZINE 25 MG TABLET PO SCH (09:48)
[2017-01-18 11:06] VITALS: BP 96/55
== END 2017-01-18 13:28 | disposition home or self-care (01) ==
LOC: EMEROO 19:52 → 3BNU 19:52 → SUATTDRO 22:08 → 3BNU 22:30
PROVIDERS: ADMIT Internal Medicine; ATTEND Internal Medicine